=== PATIENT | male | born 1940 | race Caucasian/White ===

== ENCOUNTER 2019-01-23 16:15 | Inpatient (IN) | payer MEDICARE, OTHER ==
[~2019-01-23] VITALS: Ht 188 cm; Wt 98.7 kg
--- NOTE | 2019-01-23 16:59 | PHYS DOC ---
Past History Past Medical History: Other Additional Past Medical Histor: abd hernia Past Surgical History: Other Additional Past Surgical Histo: chest tube placed and removed Smoking: Quit Greater Than 1 Year Additional Smoking Information: Quit in 2017 Additional Alcohol Information: 5th every 2-3 weeks Drug Use: Marijuana Social History Narrative: no recent use Adult General Chief Complaint Chief Complaint: SHORTNESS OF BREATH [facility] HPI Patient is a 78-year-old male presents with worsening shortness of breath over the past month. Worse with exertion. No chest pain. Patient notes that his legs bilaterally have started swelling worse than usual in the past month. No worsening with recumbent position. No chest pain or palpitations. No cough. Patient is a former smoker having stopped approximately 2 years ago. Patient reports that he is eligible for care at the [place] but [facility]] Review of Systems Review of Systems Constitutional: Denies fever or chills [] Eyes: Denies change in visual acuity, redness, or eye pain [] HENT: Denies nasal congestion or sore throat [] Respiratory: See history of present illness[] Cardiovascular: No additional information not addressed in HPI [] GI: Denies abdominal pain, nausea, vomiting, bloody stools or diarrhea [] : Denies dysuria or hematuria [] Musculoskeletal: Denies back pain or joint pain [] Integument: Denies rash or skin lesions [] Neurologic: Denies headache, focal weakness or sensory changes [] Endocrine: Denies polyuria or polydipsia [] All other systems were reviewed and found to be within normal limits, except as documented in this note. Allergies Allergies Allergies Coded Allergies Type Severity Reaction Last Updated Verified No Known Drug Allergies 01/23/19 No Physical Exam Physical Exam Constitutional: Well developed, well nourished, mild discomfort, non-toxic appearance. [] HENT: Normocephalic, atraumatic, bilateral external ears normal, oropharynx moist, no oral exudates, nose normal. [] Eyes: PERRLA, EOMI, conjunctiva normal, no discharge. [] Neck: Normal range of motion, no tenderness, supple, no stridor. [] Cardiovascular:Heart rate is tachycardic with a regular rhythm, no murmur [] Lungs & Thorax: Bilateral breath sounds with inspiratory and expiratory wheezes throughout, decreased air flow[] Abdomen: Bowel sounds normal, soft, no tenderness, no masses, no pulsatile masses. [] Skin: Warm, dry, no erythema, no rash. [] Back: No tenderness, no CVA tenderness. [] Extremities: No tenderness, no cyanosis, no clubbing, ROM intact, 3+ pretibial edema and bilateral foot edema bilaterally. [] Neurologic: Alert and oriented X 3, normal motor function, normal sensory function, no focal deficits noted. [] Psychologic: Affect normal, judgement normal, mood normal. [] Current Patient Data Vital Signs Vital Signs Date Time Temp Pulse Resp B/P (MAP) Pulse Ox O2 Delivery O2 Flow Rate FiO2 01/23/19 16:22 98.3 112 22 93 Room Air EKG EKG EKG shows a sinus tachycardia at 109 bpm, left axis, QTC of 508 ms, no ST elevations. No old EKG available for comparison. Interpreted by me at 1658[] Radiology/Procedures Radiology/Procedures PROCEDURE: CHEST PA & LATERAL CHEST PA LATERAL CLINICAL INDICATION: Shortness of breath COMPARISON: None FINDINGS: Heart is normal in size. Lungs are slightly hyperinflated. No focal consolidation. Lungs are clear. No pneumothorax or pleural effusion. Visualized bony thorax within normal limits. IMPRESSION: COPD changes. Superimposed mild atypical/viral infection not ruled out.[] Course & Med Decision Making Course & Med Decision Making Pertinent Labs and Imaging studies reviewed. (See chart for details) ED course: Patient arrived, was placed in bed, and tolerated exam well. He was given a breathing treatment which improved aeration. IV access was established, laboratory samples were sent. He was transported to and from radiology with any complications. Additional breathing treatment was administered which improved his lung sounds even more. Consultation was made with the hospitalist service. They graciously accepted. Findings and plan were discussed with the patient who voiced understanding. All questions are were answered. He was admitted in improved condition. Medical decision making: Patient appears to have elements of both COPD and CHF. There is no evidence of overt failure on his chest x-ray but his bilateral lower extremities shows significant swelling in his BNP is greater than 3000. Patient's troponin is negative to day however his symptoms of been getting worse over the past month, this may been triggered by a cardiac event and the enzymes have tapered over time. He Is being admitted for further evaluation and treatment. [] Dragon Disclaimer Dragon Disclaimer This electronic medical record was generated, in whole or in part, using a voice recognition dictation system. Departure Departure: Impression: Primary Impression: COPD (chronic obstructive pulmonary disease) Additional Impression: Congestive heart failure Disposition: 09 ADMITTED INPATIENT Admitting Physician: Leida Acosta Condition: IMPROVED Referrals: PCP,NO (PCP) Problem Qualifiers Primary Impression: COPD (chronic obstructive pulmonary disease) COPD type: unspecified COPD Qualified Codes: J44.9 - Chronic obstructive pulmonary disease, unspecified Additional Impression: Congestive heart failure Heart failure type: unspecified Heart failure chronicity: unspecified Qualified Codes: I50.9 - Heart failure, unspecified SELENE BRITO DO Jan 23, 2019 16:59
[2019-01-23] MEDS ORDERED: ASPIRIN 81 MG TAB.CHEW PO ONE (17:00)
[2019-01-23] MEDS ORDERED: IPRATRPIUM/ALBUTEROL 0.5/2.5MG 3 ML NEBU. NEB ONE (17:00)
[2019-01-23 17:08] LABS: BASO % 0 % (0-3); EOS # 0.1 x10^3/uL (0.0-0.7); EOS % 1 % (0-3); HEMATOCRIT 48.2 % (39.0-53.0); HEMOGLOBIN 15.8 g/dL (13.0-17.5); LYMPH # 1.4 x10^3/uL (1.0-4.8); LYMPH % 15 % (24-48); MEAN CORPUSCULAR HEMOGLOBIN 29 pg (25-35); MEAN CORPUSCULAR HGB CONC 33 g/dL (31-37); MEAN CORPUSCULAR VOLUME 87 fL (79-100); MONO # 0.7 x10^3/uL (0.0-1.1); MONO % 8 % (0-9); NEUT # 7.1 x10^3uL (1.8-7.7); NEUT % 76 % (31-73); PLATELET COUNT 184 x10^3/uL (140-400); RED BLOOD COUNT 5.54 x10^6/uL (4.30-5.70); RED CELL DISTRIBUTION WIDTH 15.2 % (11.5-14.5); WHITE BLOOD COUNT 9.4 x10^3/uL (4.0-11.0)
[2019-01-23 17:24] LABS: ALBUMIN 2.6 g/dL (3.4-5.0); ALBUMIN/GLOBULIN RATIO 0.6 (1.0-1.7); CALCIUM 8.9 mg/dL (8.5-10.1); CREATININE 1.2 mg/dL (0.7-1.3); GFR 58.6; MAGNESIUM 2.1 mg/dL (1.8-2.4); POTASSIUM 3.7 mmol/L (3.5-5.1); TOTAL BILIRUBIN 1.5 mg/dL (0.2-1.0); TOTAL PROTEIN 6.8 g/dL (6.4-8.2)
[2019-01-23] MEDS ORDERED: ALBUTEROL SULFATE 2.5 MG/3 ML NEBU. NEB ONE (17:30)
--- NOTE | 2019-01-23 17:30 | RAD ---
CHEST PA LATERAL CLINICAL INDICATION: Shortness of breath COMPARISON: None FINDINGS: Heart is normal in size. Lungs are slightly hyperinflated. No focal consolidation. Lungs are clear. No pneumothorax or pleural effusion. Visualized bony thorax within normal limits. IMPRESSION: COPD changes. Superimposed mild atypical/viral infection not ruled out. Electronically signed by: Phoenix Hickman DO (01/23/2019 5:27 PM) [facility]
[2019-01-23] MEDS ORDERED: FUROSEMIDE 40 MG/4 ML VIAL IVP ONE (18:00)
[2019-01-23] MEDS ORDERED: methylPREDNISolone SOD SUCC PF 125 MG/2 ML VIAL. IV ONE (18:00)
[2019-01-23] MEDS ORDERED: NITROGLYCERIN SUBLINGUAL 0.4 MG BOTTLE OF 25. SL PRN (18:15)
[2019-01-23] MEDS ORDERED: ONDANSETRON PF 4 MG/2 ML VIAL. IV PRN (18:15)
[2019-01-23] MEDS ORDERED: ACETAMINOPHEN 325 MG TABLET PO PRN (18:15)
[2019-01-23 19:25] VITALS: BP 125/78
[2019-01-23] MEDS: IPRATRPIUM/ALBUTEROL 0.5/2.5MG 3 ML NEBU. NEB SCH (20:00)
[2019-01-23 20:02] LABS: CLARITY,URINE CLEAR; COLOR,URINE YELLOW; GLUCOSE,URINE NEG (NEG)
[2019-01-23 20:03] LABS: BACTERIA,URINE FEW /HPF (0-FEW); BILIRUBIN,URINE NEG (NEG); HYALINE CASTS, URINE FEW /HPF; NITRITE,URINE POS (NEG); RBC,URINE 0 /HPF (0-2); UROBILINOGEN,URINE 8 mg/dL (0.2 mg/dL); WAXY CASTS,URINE OCC /HPF; WBC,URINE OCC /HPF (0-4)
[2019-01-23] MEDS ORDERED: ASPI81TA50 PO (23:18)
[2019-01-23] MEDS ORDERED: Influenza vaccine per PROTOCOL. MC PRN (23:45)
[2019-01-24 06:29] VITALS: BP 121/89
--- NOTE | 2019-01-24 07:13 | EKG ---
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
[2019-01-24] MEDS: IPRATRPIUM/ALBUTEROL 0.5/2.5MG 3 ML NEBU. NEB SCH ×3 (08:00→16:00)
[2019-01-24] MEDS ORDERED: FLU VAX QS 2019-20 (36MOS+)/PF 0.5 ML SYRINGE. VAX IM ONE (09:00)
--- NOTE | 2019-01-24 10:14 | PDOC2 ---
CONSULT Date of Admission DATE: 01/24/19 TIME: 10:14 Reason for Consult: Congestive heart failure Referring Physician: Dr. Acosta Chief Complaint Shortness of breath Source: Chart review, Patient Problem List Problems Medical Problems: (1) Congestive heart failure Status: Acute (2) COPD (chronic obstructive pulmonary disease) Status: Acute History of Present Illness 78-year-old male without any previous cardiac history presented with one month history of progressive shortness of breath. He also complained of bilateral lower extremity edema but denied any chest pain, orthopnea/PND, palpitations or syncope. He has history of COPD and quit smoking 2 years ago. Past Medical History COPD Past Surgical History Chest tube placement Family History Negative for premature coronary artery disease Social History Patient quit smoking 2 years ago. He admitted to alcohol intake and marijuana use. Current Medications Current Medications Aspirin (Children'S Aspirin) 324 mg 1X ONCE PO Last administered on 01/23/19at 17:02; Start 01/23/19 at 17:00; Stop 01/23/19 at 17:01; Status DC Albuterol/ Ipratropium (Duoneb) 3 ml 1X ONCE NEB Last administered on 01/23/19at 17:05; Start 01/23/19 at 17:00; Stop 01/23/19 at 17:01; Status DC Albuterol Sulfate (Ventolin) 2.5 mg 1X ONCE NEB Last administered on 01/23/19at 17:47; Start 01/23/19 at 17:30; Stop 01/23/19 at 17:31; Status DC Methylprednisolone Sodium Succinate (SOLU-Medrol 125MG VIAL) 125 mg 1X ONCE IV Last administered on 01/23/19at 18:08; Start 01/23/19 at 18:00; Stop 01/23/19 at 18:01; Status DC Furosemide (Lasix) 40 mg 1X ONCE IVP Last administered on 01/23/19at 18:10; Start 01/23/19 at 18:00; Stop 01/23/19 at 18:01; Status DC Ondansetron HCl (Zofran) 4 mg PRN Q4HRS PRN IV NAUSEA/VOMITING; Start 01/23/19 at 18:15; Stop 01/24/19 at 18:14 Acetaminophen (Tylenol) 650 mg PRN Q4HRS PRN PO FEVER; Start 01/23/19 at 18:15; Stop 01/24/19 at 18:14 Nitroglycerin (Nitrostat) 0.4 mg PRN Q5MIN PRN SL CHEST PAIN; Start 01/23/19 at 18:15; Stop 01/24/19 at 18:14 Albuterol/ Ipratropium (Duoneb) 3 ml RTQID NEB Last administered on 01/24/19at 08:00; Start 01/23/19 at 20:00; Stop 01/24/19 at 19:59 Influenza Virus Vaccine Quadrival (Afluria Quad 2019-20 (3yr Up) Syringe) 0.5 ml ONCE ONCE VAX IM Last administered on 01/24/19at 09:49; Start 01/24/19 at 09:00; Stop 01/24/19 at 09:01; Status DC Info (FLU VACCINE per PROTOCOL) 1 ea PRN 1X PRN MC PER PROTOCOL; Start 01/23/19 at 23:45; Status Cancel Active Scripts Active Reported Aspir-Low (Aspirin) 81 Mg Tablet. 1 Tab PO DAILY Allergies: Coded Allergies: No Known Drug Allergies (Unverified , 01/23/19) PSYCHOLOGICAL ROS: No: Hallucinations Eyes: No: Loss of vision HEENT: No: Epistaxis Respiratory: YES: Shortness of breath; No: Hemoptysis Cardiovascular: No: Chest Pain, Palpitations Gastrointestinal: No: Vomiting Neurological: No: Seizures Skin: No: Rash General: Alert, mild distress HEENT: Atraumatic, PERRLA Lungs: Other (bilateral scattered crepitations) Heart: Regular rate Abdomen: Soft Extremities: Other (1+ pitting edema) Psych/Mental Status: Mental status NL VITALS Vital Signs Date Time Temp Pulse Resp B/P (MAP) Pulse Ox O2 Delivery O2 Flow Rate FiO2 01/24/19 07:00 Room Air 01/24/19 06:29 97.2 88 20 121/89 (100) 91 3.0 Labs Laboratory Tests Test 01/23/19 16:40 01/23/19 19:05 White Blood Count 9.4 x10^3/uL (4.0-11.0) Red Blood Count 5.54 x10^6/uL (4.30-5.70) Hemoglobin 15.8 g/dL (13.0-17.5) Hematocrit 48.2 % (39.0-53.0) Mean Corpuscular Volume 87 fL (79-100) Mean Corpuscular Hemoglobin 29 pg (25-35) Mean Corpuscular Hemoglobin Concent 33 g/dL (31-37) Red Cell Distribution Width 15.2 % (11.5-14.5) Platelet Count 184 x10^3/uL (140-400) Neutrophils (%) (Auto) 76 % (31-73) Lymphocytes (%) (Auto) 15 % (24-48) Monocytes (%) (Auto) 8 % (0-9) Eosinophils (%) (Auto) 1 % (0-3) Basophils (%) (Auto) 0 % (0-3) Neutrophils # (Auto) 7.1 x10^3uL (1.8-7.7) Lymphocytes # (Auto) 1.4 x10^3/uL (1.0-4.8) Monocytes # (Auto) 0.7 x10^3/uL (0.0-1.1) Eosinophils # (Auto) 0.1 x10^3/uL (0.0-0.7) Basophils # (Auto) 0.0 x10^3/uL (0.0-0.2) Prothrombin Time 13.3 SEC (9.4-11.4) Prothromb Time International Ratio 1.3 (0.9-1.1) Activated Partial Thromboplast Time 29 SEC (23-33) Sodium Level 137 mmol/L (136-145) Potassium Level 3.7 mmol/L (3.5-5.1) Chloride Level 98 mmol/L (98-107) Carbon Dioxide Level 30 mmol/L (21-32) Anion Gap 9 (6-14) Blood Urea Nitrogen 18 mg/dL (8-26) Creatinine 1.2 mg/dL (0.7-1.3) Estimated GFR (Cockcroft-Gault) 58.6 BUN/Creatinine Ratio 15 (6-20) Glucose Level 127 mg/dL (70-99) Calcium Level 8.9 mg/dL (8.5-10.1) Magnesium Level 2.1 mg/dL (1.8-2.4) Total Bilirubin 1.5 mg/dL (0.2-1.0) Aspartate Amino Transf (AST/SGOT) 23 U/L (15-37) Alanine Aminotransferase (ALT/SGPT) 24 U/L (16-63) Alkaline Phosphatase 85 U/L (46-116) Troponin I Quantitative < 0.017 ng/mL (0-0.055) BL-Qkh-C-Type Natriuretic Peptide 3118 pg/mL (0-449) Total Protein 6.8 g/dL (6.4-8.2) Albumin 2.6 g/dL (3.4-5.0) Albumin/Globulin Ratio 0.6 (1.0-1.7) Lipase 290 U/L (73-393) Urine Collection Type Unknown Urine Color Yellow Urine Clarity Clear Urine pH 6.0 Urine Specific [place] 1.015 Urine Protein Neg (NEG-TRACE) Urine Glucose (UA) Neg mg/dL (NEG) Urine Ketones (Stick) Neg mg/dL (NEG) Urine Blood Neg (NEG) Urine Nitrite Pos (NEG) Urine Bilirubin Neg (NEG) Urine Urobilinogen Dipstick 8 mg/dL (0.2 mg/dL) Urine Leukocyte Esterase Neg (NEG) Urine RBC 0 /HPF (0-2) Urine WBC Occ /HPF (0-4) Urine Squamous Epithelial Cells None /LPF Urine Bacteria Few /HPF (0-FEW) Urine Hyaline Casts Few /HPF Urine Waxy Casts Occ /HPF Urine Mucus Mod /LPF Assessment/Plan 1. Acute respiratory failure most probably secondary to acute COPD exacerbation and acute on chronic diastolic heart failure. Continue current treatment for acute COPD exacerbation per IM. 2. Acute on chronic diastolic heart failure, improved with Lasix given in ED. Check 2-D echo to assess LV systolic function. We will consider ischemic evaluation once respirated status improves, possibly as an outpatient. Thank you for your consultation. LUC BEGUM MD Jan 24, 2019 10:14
[2019-01-24 11:24] LABS: BASO % 0 % (0-3); EOS % 0 % (0-3); HEMATOCRIT 47.9 % (39.0-53.0); HEMOGLOBIN 15.6 g/dL (13.0-17.5); LYMPH # 0.7 x10^3/uL (1.0-4.8); LYMPH % 6 % (24-48); MEAN CORPUSCULAR HEMOGLOBIN 28 pg (25-35); MEAN CORPUSCULAR HGB CONC 33 g/dL (31-37); MEAN CORPUSCULAR VOLUME 87 fL (79-100); MONO # 0.7 x10^3/uL (0.0-1.1); MONO % 6 % (0-9); NEUT # 10.7 x10^3uL (1.8-7.7); NEUT % 88 % (31-73); PLATELET COUNT 194 x10^3/uL (140-400); RED BLOOD COUNT 5.52 x10^6/uL (4.30-5.70); RED CELL DISTRIBUTION WIDTH 15.1 % (11.5-14.5); WHITE BLOOD COUNT 12.2 x10^3/uL (4.0-11.0)
[2019-01-24 11:42] LABS: ALBUMIN 2.4 g/dL (3.4-5.0); ALBUMIN/GLOBULIN RATIO 0.6 (1.0-1.7); CALCIUM 8.6 mg/dL (8.5-10.1); CREATININE 1.1 mg/dL (0.7-1.3); GFR 64.7; POTASSIUM 3.4 mmol/L (3.5-5.1); TOTAL BILIRUBIN 0.9 mg/dL (0.2-1.0); TOTAL PROTEIN 6.4 g/dL (6.4-8.2)
[2019-01-24 11:50] VITALS: BP 123/79
[2019-01-24 13:57] VITALS: BP 124/81
[2019-01-24] MEDS ORDERED: FUROSEMIDE 20 MG/2 ML VIAL IVP ONE (14:45)
[2019-01-24] MEDS ORDERED: POTASSIUM CHLORIDE 20 MEQ TABLET.ER. PO ONE (14:45)
--- NOTE | 2019-01-24 15:47 | HP ---
ADMIT DATE: 01/23/2019 HISTORY OF PRESENT ILLNESS: The patient is a 78-year-old male patient who came to the Emergency Room complaining of shortness of breath, has been going on over the last month, worse with exertion. No chest pain. He also noted that his legs are swollen more than usual over the past month, no worsening with recumbent position. No chest pain or palpitation. No cough or phlegm. He is a former smoker, having stopped approximately 2 years ago. He stated the patient reports that he is eligible for care at the [facility], but was fired from the [facility]. He was evaluated in the Emergency Room extensively and apparently was diagnosed with COPD exacerbation as well as congestive heart failure and was admitted and was treated with IV Lasix, steroids as well as inhalers. PAST MEDICAL HISTORY: Significant for chronic obstructive pulmonary disease as well an episode of pneumothorax. PAST SURGICAL HISTORY: Significant for chest tube placement and removal. ALLERGIES: He has no known drug allergies. MEDICATIONS: He is on no medication except aspirin 81 mg once a day. FAMILY HISTORY: He has 3 brothers, 1 older and 2 younger, he does not talk to. He has one sister at the young age due to myocardial infarction. He is x 5. He has 2 daughters that he does not talk to. SOCIAL HISTORY: He quit smoking about 2 years ago. He continued to drink alcohol every now and then, the last time he drank any alcohol was about a month ago. Does not use any drugs. He lives alone and uses a cane to walk around. REVIEW OF SYSTEMS: As per history of present illness. PHYSICAL EXAMINATION: GENERAL: On arrival to the Emergency Room, there was no pallor, jaundice, cyanosis or thyromegaly. No jugular venous distention, mild bilateral lower limb edema. VITAL SIGNS: His heart rate was 112, blood pressure was 122/65, temperature was 98.3, respiratory rate was 22 and oxygen saturation was 93% on room air. HEAD, EYES, EARS, NOSE AND THROAT: Showed normocephalic, atraumatic. NECK: Supple. HEART: Showed normal first and second heart sounds. No gallop or murmur. CHEST: Shows central trachea, equally reduced expansion, reduced air entry, vesicular sounds with bilateral crepitation. I could not appreciate any rhonchi. ABDOMEN: Distended, soft, nontender. NEUROLOGIC: He is awake, alert, responding appropriately. All cranial nerves intact. EXTREMITIES: He moves extremities without difficulty, he ambulates with a cane. LABORATORY DATA: On admission showed a white cell count 9400, hemoglobin 15.8, hematocrit was 48, MCV 87 and platelet count of 184,000 with a manual differential showed 76% polymorphs, 15% lymphocytes, 8% monocytes. Serum sodium was 137, potassium 3.7, chloride 98, bicarbonate 30, anion gap of 9, BUN 18, creatinine 1.2, estimated GFR was 58 mL per minute, his glucose 127, calcium was 8.9, magnesium was 2.1. Total bilirubin 1.5. AST, ALT, alkaline phosphatase were normal. His beta natriuretic peptide was 31,118, total protein was 6.8, albumin was 2.6. Lipase was 190. His prothrombin time and INR as well as aPTT were all within normal range. Urinalysis was essentially unremarkable and his chest x-ray showed that the patient's heart size is normal. Lungs are slightly hyperinflated. No focal consolidation. Lungs are clear. No pneumothorax or pleural effusion, visualized bony thorax was within normal limits. ASSESSMENT AND PLAN: The patient was admitted with COPD exacerbation and was treated with albuterol and Atrovent inhalers together with methylprednisolone as well as furosemide. We will continue with the steroids as well as inhalers. We will monitor his lab response and consult physical and occupational therapy. CLIVE CHUNG MD DR: BRIANNA/destiny JOB#: [id number] / [id number]
--- NOTE | 2019-01-24 16:38 | EKG ---
[address] [address] Test Date: 2019-01-24 Test Time: 14:07:30 Pat Name: RUBI BRITT Department: Room: 124 A Gender: M Hiv Nurse: : 1940 Requested By: CLIVE CHUNG Order Number: [id number] Reading MD: Bret Wells MD Measurements Intervals [place] Rate: 107 P: 216 AR: 154 QRS: 8 QRSD: 86 T: 60 QT: 380 QTc: 514 Interpretive Statements PROBABLE SINUS TACHYCARDIA CONSIDER ANTEROSEPTAL INFARCT BASELINE ARTIFACT Electronically Signed On 01-31-2019 11:34:32 CDT by Bret Wells MD
--- NOTE | 2019-01-24 16:39 | EKG ---
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
[2019-01-24 20:39] VITALS: BP 93/68
[2019-01-24] MEDS: POTASSIUM CHLORIDE 20 MEQ TABLET.ER. PO SCH (21:16)
[2019-01-24] MEDS: methylPREDNISolone SOD SUCC PF 40 MG/ML VIAL. IV SCH (22:00)
[2019-01-25] VITALS (8 sets, daily range): BP systolic 93–128; BP diastolic 66–91
--- NOTE | 2019-01-25 03:38 | PN ---
DATE: SUBJECTIVE: The patient is resting, slightly propped up in bed, was complaining of chest pain as well as fluttering of his chest. He continued to have also shortness of breath. He did have one set of cardiac enzymes that was negative and we did an EKG, which showed that he was in sinus rhythm and we will do 2 more sets of cardiac enzymes. PHYSICAL EXAMINATION: GENERAL: When I saw him this afternoon, he looked well and was clearly in no apparent respiratory distress. No pallor, jaundice, cyanosis or thyromegaly. No jugular venous distention. No lower limb edema. VITAL SIGNS: His heart rate was 101, blood pressure was 123/79, temperature was 98.3, respiratory rate 20 and oxygen saturation was 95% on 3 liters of oxygen. HEAD, EYES, EARS, NOSE AND THROAT: Normocephalic, atraumatic. NECK: Supple. HEART: Showed normal first and second heart sounds. No gallop or murmur. CHEST: Showed central trachea, equal bilateral expansion, air entry, vesicular sounds with crepitation mostly posteriorly on both sides. I could not appreciate any rhonchi. ABDOMEN: Distended, soft, nontender. NEUROLOGIC: He is awake, alert, responding appropriately. All cranial nerves are intact. He moves extremities without difficulty. He ambulates with a walker. His intake and output were incompletely recorded. LABORATORY DATA: As of this morning showed a white cell count of 12,200, hemoglobin 15.6, hematocrit 47, MCV 87 and platelet count of 194,000. His chemistry showed a serum sodium 139, potassium 3.4, chloride 99, bicarbonate 31, anion gap of 9, BUN 19, creatinine 1.1, estimated GFR was 65 mL per minute. His glucose was 168, calcium was 8.6. Total bilirubin, AST, ALT, alkaline phosphatase were normal. Beta natriuretic peptide was 2552. Total protein was 6.4, albumin was 2.4. ASSESSMENT: Chronic obstructive pulmonary disease exacerbation and questionable congestive heart failure. PLAN: To continue with IV Lasix. Continue with steroids and bronchodilators. We will consult Physical and Occupational Therapy and will do 2 more sets of cardiac enzymes and decide on further management accordingly. CLIVE CHUNG MD DR: BRIANNA/destiny JOB#: [id number] / [id number]
[2019-01-25] MEDS: methylPREDNISolone SOD SUCC PF 40 MG/ML VIAL. IV SCH ×3 (06:00→14:08)
[2019-01-25 06:28] LABS: HEMATOCRIT 45.5 % (39.0-53.0); RED BLOOD COUNT 5.24 x10^6/uL (4.30-5.70); RED CELL DISTRIBUTION WIDTH 15.2 % (11.5-14.5); WHITE BLOOD COUNT 10.3 x10^3/uL (4.0-11.0)
[2019-01-25 06:46] LABS: ALBUMIN 2.3 g/dL (3.4-5.0); ALBUMIN/GLOBULIN RATIO 0.6 (1.0-1.7); CALCIUM 8.5 mg/dL (8.5-10.1); CREATININE 1.1 mg/dL (0.7-1.3); GFR 64.7; POTASSIUM 3.8 mmol/L (3.5-5.1); TOTAL BILIRUBIN 0.6 mg/dL (0.2-1.0); TOTAL PROTEIN 5.9 g/dL (6.4-8.2)
[2019-01-25] MEDS: POTASSIUM CHLORIDE 20 MEQ TABLET.ER. PO SCH ×2 (08:38→14:00)
[2019-01-25] MEDS ORDERED: FUROSEMIDE 40 MG TABLET PO SCH (09:00)
[2019-01-25] MEDS ORDERED: FUROSEMIDE 40 MG/4 ML VIAL IVP SCH (09:00)
--- NOTE | 2019-01-25 09:13 | PDOC ---
OMAR GARCES JANELLE 01/25/19 0912: CARDIO Progress Notes Date & Time Date of Service DATE: 01/25/19 TIME: 09:08 Time of Evaluation 09:08 Subjective Notes slightly less SOA at rest, but RAE persists Vitals Vitals Vital Signs Date Time Temp Pulse Resp B/P (MAP) Pulse Ox O2 Delivery O2 Flow Rate FiO2 01/25/19 06:13 97.9 119 18 124/83 (97) 90 Nasal Cannula 3.0 Weight Weight [ ] Input and Output I.O. Intake and Output 01/25/19 07:00 Intake Total 840 ml Balance 840 ml Intake Oral 840 ml # Voids 5 # Bowel Movements 2 Laboratory Labs Laboratory Tests Test 01/23/19 16:40 01/23/19 19:05 01/24/19 11:13 01/24/19 14:00 White Blood Count 9.4 x10^3/uL (4.0-11.0) 12.2 x10^3/uL (4.0-11.0) Red Blood Count 5.54 x10^6/uL (4.30-5.70) 5.52 x10^6/uL (4.30-5.70) Hemoglobin 15.8 g/dL (13.0-17.5) 15.6 g/dL (13.0-17.5) Hematocrit 48.2 % (39.0-53.0) 47.9 % (39.0-53.0) Mean Corpuscular Volume 87 fL (79-100) 87 fL (79-100) Mean Corpuscular Hemoglobin 29 pg (25-35) 28 pg (25-35) Mean Corpuscular Hemoglobin Concent 33 g/dL (31-37) 33 g/dL (31-37) Red Cell Distribution Width 15.2 % (11.5-14.5) 15.1 % (11.5-14.5) Platelet Count 184 x10^3/uL (140-400) 194 x10^3/uL (140-400) Neutrophils (%) (Auto) 76 % (31-73) 88 % (31-73) Lymphocytes (%) (Auto) 15 % (24-48) 6 % (24-48) Monocytes (%) (Auto) 8 % (0-9) 6 % (0-9) Eosinophils (%) (Auto) 1 % (0-3) 0 % (0-3) Basophils (%) (Auto) 0 % (0-3) 0 % (0-3) Neutrophils # (Auto) 7.1 x10^3uL (1.8-7.7) 10.7 x10^3uL (1.8-7.7) Lymphocytes # (Auto) 1.4 x10^3/uL (1.0-4.8) 0.7 x10^3/uL (1.0-4.8) Monocytes # (Auto) 0.7 x10^3/uL (0.0-1.1) 0.7 x10^3/uL (0.0-1.1) Eosinophils # (Auto) 0.1 x10^3/uL (0.0-0.7) 0.0 x10^3/uL (0.0-0.7) Basophils # (Auto) 0.0 x10^3/uL (0.0-0.2) 0.0 x10^3/uL (0.0-0.2) Prothrombin Time 13.3 SEC (9.4-11.4) Prothromb Time International Ratio 1.3 (0.9-1.1) Activated Partial Thromboplast Time 29 SEC (23-33) Sodium Level 137 mmol/L (136-145) 139 mmol/L (136-145) Potassium Level 3.7 mmol/L (3.5-5.1) 3.4 mmol/L (3.5-5.1) Chloride Level 98 mmol/L (98-107) 99 mmol/L (98-107) Carbon Dioxide Level 30 mmol/L (21-32) 31 mmol/L (21-32) Anion Gap 9 (6-14) 9 (6-14) Blood Urea Nitrogen 18 mg/dL (8-26) 19 mg/dL (8-26) Creatinine 1.2 mg/dL (0.7-1.3) 1.1 mg/dL (0.7-1.3) Estimated GFR (Cockcroft-Gault) 58.6 64.7 BUN/Creatinine Ratio 15 (6-20) 17 (6-20) Glucose Level 127 mg/dL (70-99) 168 mg/dL (70-99) Calcium Level 8.9 mg/dL (8.5-10.1) 8.6 mg/dL (8.5-10.1) Magnesium Level 2.1 mg/dL (1.8-2.4) Total Bilirubin 1.5 mg/dL (0.2-1.0) 0.9 mg/dL (0.2-1.0) Aspartate Amino Transf (AST/SGOT) 23 U/L (15-37) 25 U/L (15-37) Alanine Aminotransferase (ALT/SGPT) 24 U/L (16-63) 23 U/L (16-63) Alkaline Phosphatase 85 U/L (46-116) 80 U/L (46-116) Troponin I Quantitative < 0.017 ng/mL (0-0.055) < 0.017 ng/mL (0-0.055) IV-Cpa-Q-Type Natriuretic Peptide 3118 pg/mL (0-449) 2552 pg/mL (0-449) Total Protein 6.8 g/dL (6.4-8.2) 6.4 g/dL (6.4-8.2) Albumin 2.6 g/dL (3.4-5.0) 2.4 g/dL (3.4-5.0) Albumin/Globulin Ratio 0.6 (1.0-1.7) 0.6 (1.0-1.7) Lipase 290 U/L (73-393) Urine Collection Type Unknown Urine Color Yellow Urine Clarity Clear Urine pH 6.0 Urine Specific Leonore 1.015 Urine Protein Neg (NEG-TRACE) Urine Glucose (UA) Neg mg/dL (NEG) Urine Ketones (Stick) Neg mg/dL (NEG) Urine Blood Neg (NEG) Urine Nitrite Pos (NEG) Urine Bilirubin Neg (NEG) Urine Urobilinogen Dipstick 8 mg/dL (0.2 mg/dL) Urine Leukocyte Esterase Neg (NEG) Urine RBC 0 /HPF (0-2) Urine WBC Occ /HPF (0-4) Urine Squamous Epithelial Cells None /LPF Urine Bacteria Few /HPF (0-FEW) Urine Hyaline Casts Few /HPF Urine Waxy Casts Occ /HPF Urine Mucus Mod /LPF Test 01/25/19 06:03 White Blood Count 10.3 x10^3/uL (4.0-11.0) Red Blood Count 5.24 x10^6/uL (4.30-5.70) Hemoglobin 15.0 g/dL (13.0-17.5) Hematocrit 45.5 % (39.0-53.0) Mean Corpuscular Volume 87 fL (79-100) Mean Corpuscular Hemoglobin 29 pg (25-35) Mean Corpuscular Hemoglobin Concent 33 g/dL (31-37) Red Cell Distribution Width 15.2 % (11.5-14.5) Platelet Count 175 x10^3/uL (140-400) Sodium Level 142 mmol/L (136-145) Potassium Level 3.8 mmol/L (3.5-5.1) Chloride Level 103 mmol/L (98-107) Carbon Dioxide Level 32 mmol/L (21-32) Anion Gap 7 (6-14) Blood Urea Nitrogen 22 mg/dL (8-26) Creatinine 1.1 mg/dL (0.7-1.3) Estimated GFR (Cockcroft-Gault) 64.7 BUN/Creatinine Ratio 20 (6-20) Glucose Level 125 mg/dL (70-99) Calcium Level 8.5 mg/dL (8.5-10.1) Total Bilirubin 0.6 mg/dL (0.2-1.0) Aspartate Amino Transf (AST/SGOT) 26 U/L (15-37) Alanine Aminotransferase (ALT/SGPT) 30 U/L (16-63) Alkaline Phosphatase 77 U/L (46-116) Total Protein 5.9 g/dL (6.4-8.2) Albumin 2.3 g/dL (3.4-5.0) Albumin/Globulin Ratio 0.6 (1.0-1.7) Physical Exams HEENT: Neck Supple W Full Motion Chest: Symmetric Lungs: Other (diminished throughout ) Heart: S1S2, RRR Abdomen: Soft N/T Extremities: Other (trace bilateral LE edema ) Neurology: alert, oriented, follow commands Assessment Assessment 1. Acute respiratory failure secondary to acute PE, AECOPD and a/c CHF 2. Significant acute PE 3. Mild acute on chronic diastolic CHF 4. Coronary artery calcification as noted on CTA 5. Hypertension; controlled 6. ? UTI 7. MADDIE 8. Sinus tach, reactive. Recommendations Echo to assess LV systolic function, RV dilation Heparin gtt No further aggressive diuresis warranted. Consider further ischemic workup on an outpatient. Supportive care ROOSEVELT COLEMAN MD 01/25/19 1623: CARDIO Progress Notes Plan Plan Pt. seen and examined. AGree with above [employer]OST[employer] note. Spoke to Dr. Becerril at [place] and Dr. Acosta. He has massive embolus with right heart strain and hypotension/tachycardia. He needs tPA. Will transfer to [place] with initiation of tPA in the ICU. Discussed with patient. No next of kin available to discuss. Thanks. OMAR GARCES APRN Jan 25, 2019 09:12 ROOSEVELT COLEMAN MD Jan 25, 2019 16:23
[2019-01-25] MEDS ORDERED: DIGOXIN IV 500 MCG/2 ML AMPUL. IV STA (11:02)
[2019-01-25] MEDS ORDERED: IV NORMAL SALINE 500ML 500 ML IV ONE (11:30)
[2019-01-25 11:33] LABS: BASO # 0.2 x10^3/uL (0.0-0.2); BASO % 1 % (0-3); EOS % 0 % (0-3); HEMATOCRIT 48.6 % (39.0-53.0); HEMOGLOBIN 15.6 g/dL (13.0-17.5); LYMPH # 2.1 x10^3/uL (1.0-4.8); LYMPH % 11 % (24-48); MEAN CORPUSCULAR HEMOGLOBIN 28 pg (25-35); MEAN CORPUSCULAR HGB CONC 32 g/dL (31-37); MEAN CORPUSCULAR VOLUME 88 fL (79-100); MONO # 0.8 x10^3/uL (0.0-1.1); MONO % 4 % (0-9); NEUT # 16.6 x10^3uL (1.8-7.7); NEUT % 84 % (31-73); PLATELET COUNT 235 x10^3/uL (140-400); RED BLOOD COUNT 5.51 x10^6/uL (4.30-5.70); RED CELL DISTRIBUTION WIDTH 15.4 % (11.5-14.5); WHITE BLOOD COUNT 19.8 x10^3/uL (4.0-11.0)
[2019-01-25 11:40] LABS: BGAS PH 7.49 (7.35-7.46)
[2019-01-25 11:48] LABS: ALBUMIN 2.4 g/dL (3.4-5.0); ALBUMIN/GLOBULIN RATIO 0.6 (1.0-1.7); CALCIUM 8.6 mg/dL (8.5-10.1); CREATININE 1.6 mg/dL (0.7-1.3); POTASSIUM 4.1 mmol/L (3.5-5.1); TOTAL BILIRUBIN 0.8 mg/dL (0.2-1.0); TOTAL PROTEIN 6.3 g/dL (6.4-8.2)
--- NOTE | 2019-01-25 12:05 | EKG ---
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
[2019-01-25 12:27] LABS: % BANDS 3 % (0-9); % BASOS 0 % (0-3); % EOS 0 % (0-5); % LYMPHS 9 % (24-48); % MONOS 5 % (0-10); % SEGS 83 % (35-66); PLT ESTIMATE ADEQUATE (ADEQUATE)
[2019-01-25] MEDS ORDERED: IOHEXOL 350 MG/ML 100 ML VIAL. IV ONE (13:00)
[2019-01-25] MEDS ORDERED: IV NORMAL SALINE 1,000ML 1,000 ML IV ONE (13:00)
[2019-01-25] MEDS ORDERED: IV NORMAL SALINE 1,000ML 1,000 ML IV SCH (13:00)
--- NOTE | 2019-01-25 13:52 | RAD ---
PQRS Compliance Statement: One or more of the following individualized dose reduction techniques were utilized for this examination: 1. Automated exposure control 2. Adjustment of the mA and/or kV according to patient size 3. Use of iterative reconstruction technique CT angiography chest with contrast 01/25/2019 1:08 PM INDICATION: Chest pain, tachycardia and marked hypoxia COMPARISON: None available TECHNIQUE: Axial CT images of the chest were obtained after the intravenous administration of nonionic contrast. Coronal and sagittal reformats are provided. Maximum intensity projection images of the thoracic vasculature are provided. FINDINGS: The thyroid gland is normal in appearance. There are no pathologically enlarged axillary, mediastinal or hilar lymph nodes. The heart size is within normal limits. No significant pericardial effusion. Thoracic aorta is normal in course and caliber. There is adequate opacification of the pulmonary arterial system. There is a saddle pulmonary embolus with occlusive thrombus identified involving the distal right main pulmonary artery with involvement of the right lobar, segmental and subsegmental pulmonary arteries of the right middle and lower lobes. Nonocclusive thrombus noted in the right upper lobe. Occlusive thrombus is noted in the left lower lobe segmental and subsegmental pulmonary arteries. There is deviation of the interventricular septum to the left compatible with right heart strain by CT. Coronary artery vascular calcifications are present. Moderate centrilobular pulmonary emphysema. No focal airspace consolidation or suspicious solid noncalcified pulmonary nodule. Restrained motion limits evaluation of the upper abdomen. Visualized portions of the upper abdomen are within normal limits. No suspicious osseous lesions are visualized. IMPRESSION: Massive pulmonary embolism with saddle embolus and associated right heart strain by CT. Moderate centrilobular pulmonary edema without focal airspace consolidation to suggest pulmonary infarct. FOR INTERNAL CODING PURPOSES Critical result: Findings discussed with Ivonne , the patient's nurse, at 01/25/2019 1:45 PM. RESULT CODE: (C) Electronically signed by: Vonda Woodson MD (01/25/2019 1:49 PM) [facility]
[2019-01-25] MEDS ORDERED: HEPARIN 25,000UTS/500ML PREMIX 500 ML IV PRN ×2 (14:00→14:15)
[2019-01-25] MEDS ORDERED: HEPARIN for IV BOLUS 10,000 UNIT/10 ML VIAL. IV ONE (14:15)
[2019-01-25] MEDS ORDERED: HEPARIN for IV BOLUS 10,000 UNIT/10 ML VIAL. IV PRN ×2 (14:15)
--- NOTE | 2019-01-25 16:04 | CARD ---
MR#: [id number] Date of Study: 01/25/2019 Ordering Physician: LUC BEGUM, Referring Physician: LUC BEGUM Tech: Carmen Ellison RDCS APPROVED REPORT EXAM: Two-dimensional and M-mode echocardiogram with Doppler and color Doppler. Other Information Quality : AverageHR: 125bpm Rhythm : TachycardiaTechnically limited study due to heart rate. INDICATION Congestive Heart Failure 2D DIMENSIONS RVDd4.4 (2.9-3.5cm)Left Atrium(2D)2.7 (1.6-4.0cm) IVSd1.0 (0.7-1.1cm)Aortic Root(2D)3.1 (2.0-3.7cm) LVDd3.3 (3.9-5.9cm)LVOT Diameter2.0 (1.8-2.4cm) PWd1.1 (0.7-1.1cm)LVDs2.3 (2.5-4.0cm) FS (%) 30.0 %SV26.5 ml LVEF(%)58.4 (>50%) M-Mode DIMENSIONS Left Atrium(MM)3.61 (2.5-4.0cm)Aortic Root3.36 (2.2-3.7cm) Aortic Valve AoV Peak Bari.121.0cm/Xavi Peak GR.5.9mmHg LVOT Peak Bari.62.7cm/sLVOT VTI 8.12cm VINAYAK (VMAX)1.58ro7URC (VTI)1.80cm2 Mitral Valve MV E Jhibttrx22.4cm/sMV DECEL TLRZ52jh MV A Zxohahmf96.6cm/sE/A Ratio1.8 Pulmonary Valve PV Peak Askhlsde566.5cm/sPV Peak Grad.4mmHg Tricuspid Valve TR P. Mqbtkifr846ta/sRAP FAMXSYUW03zuTb TR Peak Gr.75qzAfSUMK39jfJs LEFT VENTRICLE The left ventricle cavity is small. There is normal left ventricular wall thickness. The left ventric ular systolic function is normal and the ejection fraction is within normal range. The Ejection Fract ion is 55-60%. There is a flattened septum consistent with right ventricle volume and pressure overlo ad. Transmitral Doppler flow pattern is abnormal. RIGHT VENTRICLE The right ventricle is moderately to severely dilated. There is normal right ventricular wall thickne ss. RV Systolic function is moderately reduced. ATRIA The left atrium size is normal. The right atrium is moderately dilated. The interatrial septum is int act with no evidence for an atrial septal defect or patent foramen ovale as noted on 2-D or Doppler i maging. AORTIC VALVE The aortic valve is normal in structure and function. The aortic valve is trileaflet. Doppler and Col or Flow revealed no significant aortic regurgitation. There is no significant aortic valvular stenosi s. There is no aortic valvular vegetation. MITRAL VALVE The mitral valve is normal in structure and function. There is no evidence of mitral valve prolapse. There is no mitral valve stenosis. Doppler and Color Flow revealed no mitral valve regurgitation note d. TRICUSPID VALVE The tricuspid valve is normal in structure and function. Doppler and Color Flow revealed moderate tri cuspid regurgitation. There is severe pulmonary hypertension. The PA pressure was estimated at 86 mmH g. There is no tricuspid valve prolapse or vegetation. There is no tricuspid valve stenosis. PULMONIC VALVE The pulmonic valve is not well visualized. GREAT VESSELS The aortic root is normal in size. The ascending aorta is normal in size. The IVC was not visualized. PERICARDIAL EFFUSION There is no evidence of significant pericardial effusion. Critical Notification Critical Value: No <Conclusion> The left ventricular systolic function is normal and the ejection fraction is within normal range. Th e Ejection Fraction is 55-60%. There is a flattened septum consistent with right ventricle volume and pressure overload. The right ventricle is moderately to severely dilated. RV Systolic function is moderately reduced. Doppler and Color Flow revealed moderate tricuspid regurgitation. There is severe pulmonary hypertens ion. The PA pressure was estimated at 86 mmHg. Signed by : Bret Wells, Electronically Approved : 01/25/2019 16:04:19
--- NOTE | 2019-01-26 04:20 | PN ---
DATE: 01/25/2019 SUBJECTIVE: The patient is resting, slightly propped up in bed, clearly tachypneic. He is very clammy with marked diaphoresis. He did complain of chest pain after he went up to the bathroom, has 2 bowel movements and came back, his heart rate went up to 135 to 140, seems to be in SVT/atrial fibrillation. He had similar episode yesterday. We did 3 sets of cardiac enzymes that were negative. He is very hypoxic and requiring 100% nonrebreather mask to maintain his oxygen saturation more than 100%. ASSESSMENT: Chest pain could be ischemic versus pulmonary embolism. We will arrange for him to have a stat ABG, 12-lead EKG and stat troponin. We will arrange also to have a CT angio of the chest to rule out pulmonary embolism. We will decide the further management accordingly. CLIVE CHUNG MD DR: BRIANNA/destiny JOB#: [id number] / [id number]
== END 2019-01-25 18:38 | disposition short-term general hospital (02) | DRG 175 ==
LOC: ER 16:15 → 1 SOUTH 18:57 → ICU 01-25 12:41 → 1 SOUTH 01-25 12:45 → ICU 01-25 12:48
PROVIDERS: ADMIT Internal Medicine; ATTEND Internal Medicine
DX: I26.09 Other pulmonary embolism with acute cor pulmonale (principal); I50.33 Acute on chronic diastolic (congestive) heart failure; J96.01 Acute respiratory failure with hypoxia; R65.11 Systemic inflammatory response syndrome (SIRS) of non-infectious origin with acute organ dysfunction; E43 Unspecified severe protein-calorie malnutrition; J44.1 Chronic obstructive pulmonary disease with (acute) exacerbation; N17.9 Acute kidney failure, unspecified; N39.0 Urinary tract infection, site not specified; I11.0 Hypertensive heart disease with heart failure; Z87.891 Personal history of nicotine dependence; F12.90 Cannabis use, unspecified, uncomplicated; Z82.49 Family history of ischemic heart disease and other diseases of the circulatory system; I48.91 Unspecified atrial fibrillation; Z68.28 Body mass index [BMI] 28.0-28.9, adult
CPT/HCPCS: 36415; 71046; 71275; 80053; 80061; 81001; 82803; 83605; 83690; 83735; 83880; 84484; 85007; 85025; 85027; 85610; 85730; 87086; 87186; 90471; 90686; 93005; 93306; 94640; 96374; 96375; J1160; J1644; J1940; J2920; J2930; J7040; J7613; J7620; 99285-25; J7030

== ENCOUNTER 2019-02-02 15:33 | Inpatient (IN) | payer MEDICARE ==
[~2019-02-02] VITALS: Ht 188 cm; Wt 96.8 kg
[~2019-02-02 15:33] MED LIST: ASPI81TA50 PO
[2019-02-02 16:30] VITALS: BP 118/70
--- NOTE | 2019-02-02 19:20 | NUR ---
Swing Bed Admission Patient Handbook for Senior Living given to patient. Nursing Problem: PE, DVT, PT/Ot Eval/ Consult Cognitive/Behavioral: Pleasant, Compliant Pain: No pain currently Respiratory Status: SOB, 3 L O2 NC Skin: intact, with bruising Bowel/Bladder Continence: Continent of B & B ADL Functional Status: Independent Fall(s) prior to admission? Yes, 2 wks ago Admitted from? [facility]
--- NOTE | 2019-02-02 19:22 | NUR ---
Pt came from [facility] to Shelter Unit via wheelchair at 1830, . Pt is AA x 4 with a pleasant attitude. Educated pt on the expectations and nature of the unit. Pt's vital signs at 1835- 97.4, O2 sat on 3 L- 99%, Pulse Rate-103, 118/ 74, RR-22. Bed is lowest position, call light within reach, pt is wearing a brief. Instructed to call for assistance to bathroom. Pt able to state wants and desires. Pt has personal cane and hospital walker at bedside. Pt is to receive IV infusion of Venefir tonight at [address] Acosta's orders.
[2019-02-02] MEDS ORDERED: ACETAMINOPHEN 325 MG TABLET PO PRN (20:00)
[2019-02-02] MEDS ORDERED: HYDROcodone/APAP 5/325MG 1 TAB TABLET PO PRN (20:15)
[2019-02-02] MEDS ORDERED: IRON SUCROSE COMPLEX 500 MG in IV NORMAL SALINE 250ML 250 ML IV ONE (21:00)
--- NOTE | 2019-02-03 05:05 | NUR ---
Swing Bed Nursing Note Patient Handbook for Senior Living given to patient. Nursing Problem:Patient admitted from [facility] for PT/OT post PE,DVT Cognitive/Behavioral:Patient alert and oriented x 4, cooperative with cares and verbalized understanding of need to call for assistance. Pain:Patient has denied any c/o pain. Respiratory Status:HX of COPD,smoker. Lung sounds diminished on 3 L O2 per Nasal cannula. SOA with exertion, denies SOA with rest. Skin:Intact with large bruise to right lateral chest/rib area from prior fall. Bruising to Bilateral upper extremities from IV starts/lab draws per Patient. Bowel/Bladder Continence:Continent. Patient states he had a bowel movement 02/02/2019 at [facility] prior to admit here. ADL Functional Status:Assist X1 with walker and gait belt for transfers.
[2019-02-03 06:16] VITALS: BP 114/71
[2019-02-03 08:00] VITALS: BP 90/60
[2019-02-03] MEDS: FERROUS SULFATE 325 MG TABLET. PO SCH ×2 (08:29→16:58)
[2019-02-03] MEDS: predniSONE 10 MG TABLET PO SCH (08:30)
[2019-02-03] MEDS: PANTOPRAZOLE 40 MG TABLET. PO SCH (08:30)
--- NOTE | 2019-02-03 10:02 | NUR ---
Pt is alert and oriented x 4. Pt able to state wants and desires. Pt requires at least 1 assist to dress self, wipe after toileting, and ambulating. At this time, pt exhibits major weakness in Lower extremities accompanied with shortness of air. Pt stated he didn't think he could walk down to the dining room. Pt taken to breakfast this morning via wheelchair. Encouraged pt to breathe through nose to inhale oxygen. Pt states he is always a mouth breather. Pt ate little breakfast this morning. Pt states " I am scared to eat because everytime I eat it runs right through me." Encouraged pt to eat breakfast and educated pt on the importance of nourishment for strengthening and energy. Pt consumed 25% of meal. Pt worked with PT\\OT today and tolerated it ok. Pt is now resting in bed. Educated pt on the importance of staying out of bed and sitting in chair to regain strength and to become stronger. Pt stated "I'm tired and just want to lie down." Bed is in lowest position, call light within reach. non-skid socks and brief applied. Pt encouraged to call for any assistance.
[2019-02-03 10:50] LABS: ALBUMIN 2.4 g/dL (3.4-5.0); ALBUMIN/GLOBULIN RATIO 0.9 (1.0-1.7); CALCIUM 7.8 mg/dL (8.5-10.1); CREATININE 0.9 mg/dL (0.7-1.3); GFR 81.6; POTASSIUM 3.6 mmol/L (3.5-5.1); TOTAL BILIRUBIN 1.5 mg/dL (0.2-1.0); TOTAL PROTEIN 5.1 g/dL (6.4-8.2)
[2019-02-03 11:11] LABS: BASO # 0.1 x10^3/uL (0.0-0.2); BASO % 0 % (0-3); EOS % 0 % (0-3); HEMATOCRIT 24.3 % (39.0-53.0); HEMOGLOBIN 7.8 g/dL (13.0-17.5); LYMPH # 0.5 x10^3/uL (1.0-4.8); LYMPH % 4 % (24-48); MEAN CORPUSCULAR HEMOGLOBIN 30 pg (25-35); MEAN CORPUSCULAR HGB CONC 32 g/dL (31-37); MEAN CORPUSCULAR VOLUME 95 fL (79-100); MONO # 0.5 x10^3/uL (0.0-1.1); MONO % 3 % (0-9); NEUT # 12.6 x10^3uL (1.8-7.7); NEUT % 92 % (31-73); PLATELET COUNT 160 x10^3/uL (140-400); RED BLOOD COUNT 2.56 x10^6/uL (4.30-5.70); RED CELL DISTRIBUTION WIDTH 20.7 % (11.5-14.5); WHITE BLOOD COUNT 13.7 x10^3/uL (4.0-11.0)
[2019-02-03 12:22] LABS: ANISOCYTOSIS SLIGHT; HYPOCHROMIA SLIGHT; MICROCYTOSIS MOD; PLT ESTIMATE ADEQUATE (ADEQUATE); POLYCHROMASIA SLIGHT; TEAR DROP CELLS OCC
[2019-02-03] MEDS: CALCIUM CARBONATE 500 MG TAB.CHEW PO PRN (16:58)
[2019-02-03 18:00] VITALS: BP 97/59
[2019-02-04 06:47] VITALS: BP 112/65
[2019-02-04 08:00] VITALS: BP 115/72
[2019-02-04] MEDS: predniSONE 10 MG TABLET PO SCH (09:28)
[2019-02-04] MEDS: PANTOPRAZOLE 40 MG TABLET. PO SCH (09:29)
[2019-02-04] MEDS: FERROUS SULFATE 325 MG TABLET. PO SCH ×2 (09:29→17:00)
[2019-02-04 18:19] VITALS: BP 115/61
--- NOTE | 2019-02-05 05:39 | NUR ---
Pt is alert and oriented x4, pleasant and cooperative. He states he feels weak when trying to walk to the toilet but is successful with the walker with x1 assistance to help with moving clothing for urination, oxygen tubing and for balance. Pt eats snacks with encouragement and is looking forward to go home. He states he is "concerned about my apartment since I have no one to help me." He has a neighbor who has offered to bring him clothing but has not yet made it to the hospital. Will continue to monitor.
[2019-02-05 06:32] VITALS: BP 131/73
[2019-02-05] MEDS: PANTOPRAZOLE 40 MG TABLET. PO SCH (08:32)
[2019-02-05] MEDS: FERROUS SULFATE 325 MG TABLET. PO SCH ×2 (08:33→17:00)
[2019-02-05] MEDS: predniSONE 10 MG TABLET PO SCH (08:33)
[2019-02-05 09:18] VITALS: BP 98/55
[2019-02-05 10:33] LABS: HEMATOCRIT 23.1 % (39.0-53.0); HEMOGLOBIN 7.5 g/dL (13.0-17.5); RED BLOOD COUNT 2.38 x10^6/uL (4.30-5.70); RED CELL DISTRIBUTION WIDTH 21.7 % (11.5-14.5); WHITE BLOOD COUNT 10.3 x10^3/uL (4.0-11.0)
[2019-02-05 10:40] LABS: CALCIUM 7.6 mg/dL (8.5-10.1); CREATININE 0.8 mg/dL (0.7-1.3); GFR 93.5
[2019-02-05 10:42] LABS: POTASSIUM 2.8 mmol/L (3.5-5.1)
[2019-02-05] MEDS ORDERED: POTASSIUM CHLORIDE 20 MEQ TABLET.ER. PO ONE (11:15)
[2019-02-05] MEDS ORDERED: IV NORMAL SALINE 500ML 500 ML IV ONE (11:15)
[2019-02-05] MEDS: LORazepam 0.5 MG TABLET PO PRN (11:34)
[2019-02-05] MEDS: POTASSIUM CHLORIDE 20 MEQ TABLET.ER. PO SCH ×2 (11:35→20:29)
[2019-02-05] MEDS: IV NORMAL SALINE 1,000ML 1,000 ML IV SCH (11:36)
[2019-02-05 16:37] LABS: CALCIUM 7.4 mg/dL (8.5-10.1); CREATININE 0.8 mg/dL (0.7-1.3); GFR 93.5; POTASSIUM 4.1 mmol/L (3.5-5.1)
[2019-02-05 18:00] VITALS: BP 104/65
--- NOTE | 2019-02-05 21:45 | NUR ---
Pt is alert and oriented x 4. Pt able to state wants and desires. Pt requires at least 1 assist to dress self, wipe after toileting, and ambulating. At this time, pt exhibits major weakness in Lower extremities accompanied with shortness of air, pt is on 2 liters of 0xygen via nasal cannula. pt does have pitting edema around ankles. pt was calm and cooperative during med [employer] [place].
[2019-02-06] MEDS: IV NORMAL SALINE 1,000ML 1,000 ML IV SCH ×2 (00:31→14:30)
[2019-02-06 01:14] LABS: FECAL OB PT POSITIVE (NEG)
[2019-02-06 06:00] VITALS: BP 111/64
[2019-02-06 06:57] LABS: ALBUMIN 1.9 g/dL (3.4-5.0); ALBUMIN/GLOBULIN RATIO 0.7 (1.0-1.7); CALCIUM 7.6 mg/dL (8.5-10.1); CREATININE 0.7 mg/dL (0.7-1.3); GFR 109.1; POTASSIUM 3.7 mmol/L (3.5-5.1); TOTAL BILIRUBIN 0.7 mg/dL (0.2-1.0); TOTAL PROTEIN 4.5 g/dL (6.4-8.2)
[2019-02-06 06:58] LABS: HEMATOCRIT 21.8 % (39.0-53.0); HEMOGLOBIN 7.3 g/dL (13.0-17.5); RED BLOOD COUNT 2.28 x10^6/uL (4.30-5.70); RED CELL DISTRIBUTION WIDTH 22.2 % (11.5-14.5); WHITE BLOOD COUNT 9.3 x10^3/uL (4.0-11.0)
[2019-02-06] MEDS: POTASSIUM CHLORIDE 20 MEQ TABLET.ER. PO SCH ×3 (08:34→20:06)
[2019-02-06] MEDS: FERROUS SULFATE 325 MG TABLET. PO SCH ×2 (08:35→17:30)
[2019-02-06] MEDS: predniSONE 10 MG TABLET PO SCH (08:35)
[2019-02-06] MEDS: PANTOPRAZOLE 40 MG TABLET. PO SCH (08:35)
[2019-02-06] MEDS ORDERED: predniSONE 20 MG TABLET PO SCH (09:00)
[2019-02-06 11:19] VITALS: BP 105/59
--- NOTE | 2019-02-06 12:59 | NUR ---
Pt calm and cooperative. A&O x 4. Need assistance X1 from sitting to standing position. Stby assist with a walker to the bathroom. Able to use toilet and clean self. At breakfast, Patient stated: " I can't make it to the dinning room with the walker. I need my wheelchair." Refuses to go to dining room at lunch and eat meal in bed as friend next door got discharged.
--- NOTE | 2019-02-06 13:00 | NUR ---
Pt was siting down quietly in his room. Pt was eating his lunch , and after lunch pt did not want to participate in any recreation Activity [employer].
--- NOTE | 2019-02-06 16:57 | NUR ---
Swing Bed Nursing Note Patient Handbook for [facility] given to patient. Nursing Problem:Patient admitted from [facility] for PT/OT post PE,DVT Cognitive/Behavioral:Patient alert and oriented x 4, cooperative with cares and verbalized understanding of need to call for assistance. No behaviors noticed at this shift. Pain:Patient has denied any c/o pain. Respiratory Status:HX of COPD,smoker. Lung sounds diminished on 3 L O2 per Nasal cannula. SOA with exertion. No cough. Off oxygen when using the bathroom. Skin:Intact with large bruise to right lateral chest/rib area from prior fall. Bruising to Bilateral upper extremities from IV starts/lab draws per Patient. Bowel/Bladder Continence:Continent. Patient had two episodes of BM today. Dark color, formed. Voided 03 times today. clear yellow urine. ADL Functional Status:Assist X1 with walker and gait belt for transfers. Able to wipe self after bathroom use. Able to pull pant down and up by himself. Need help standing up from toilet. Prefer to use wheelchair to go to dinning room instead of walker in order to prevent SOA. Had activities with PT and OT today. Prefer stay in bed for lunch and eat dinner sitting on bedside. Able to swing self in bed and put blanket when sitting on bedside.
[2019-02-06 18:19] VITALS: BP 111/70
[2019-02-06 19:49] LABS: CALCIUM 7.6 mg/dL (8.5-10.1); CREATININE 0.7 mg/dL (0.7-1.3); GFR 109.1; POTASSIUM 4.2 mmol/L (3.5-5.1)
--- NOTE | 2019-02-07 05:07 | NUR ---
Swing Bed Nursing Note Patient Handbook for [facility] given to patient. Nursing Problem:Patient admitted from [facility] for PT/OT, strengthening post PE,DVT Cognitive/Behavioral: Patient alert and oriented x 4, cooperative with cares and verbalized understanding of need to call for assistance. No behaviors noticed at this shift. Pain: Patient has denied any c/o pain. Respiratory Status: History of COPD. Lung sounds clear, diminished, 2L NC. SOA with exertion. Non productive cough. Skin:Intact with large bruise to right lateral chest/rib area from prior fall. Bruising to bilateral upper extremities from multiple IV starts/lab draws. Bowel/Bladder Continence: Continent of bowel and bladder. Uses toilet with standby assist. ADL Functional Status:Assist X1 with walker and gait belt for transfers. Able to wipe self after bathroom use. Able to pull pant down and up by himself. Need help standing up from toilet. Prefers to use wheelchair to go to dinning room instead of walker in order to prevent SOA. Able to swing self in bed and put blanket when sitting on bedside.
[2019-02-07 05:16] VITALS: BP 126/67
[2019-02-07 06:12] LABS: HEMATOCRIT 22.8 % (39.0-53.0); HEMOGLOBIN 7.5 g/dL (13.0-17.5); RED BLOOD COUNT 2.35 x10^6/uL (4.30-5.70); RED CELL DISTRIBUTION WIDTH 23.1 % (11.5-14.5); WHITE BLOOD COUNT 9.2 x10^3/uL (4.0-11.0)
[2019-02-07] MEDS: FERROUS SULFATE 325 MG TABLET. PO SCH ×2 (08:00→17:54)
[2019-02-07] MEDS: predniSONE 10 MG TABLET PO SCH (08:00)
[2019-02-07] MEDS: POTASSIUM CHLORIDE 20 MEQ TABLET.ER. PO SCH ×3 (08:00→20:26)
[2019-02-07] MEDS: PANTOPRAZOLE 40 MG TABLET. PO SCH (08:00)
[2019-02-07] MEDS: LORazepam 0.5 MG TABLET PO PRN (09:53)
--- NOTE | 2019-02-07 11:59 | NUR ---
Swing Bed Nursing Note Patient Handbook for [facility] given to patient. Nursing Problem:Patient admitted from [facility] for PT/OT for gait strengthening post massive PE, DVT, and acute GI bleed Cognitive/Behavioral: Patient alert and oriented x 4, cooperative with cares and verbalized understanding of need to call for assistance. Patient will use call light prior to getting up due to high fall risk. Patient appears anxious this morning, per nurses aide, patient is like this in the morning and states that he gets panic attacks very easily. PRN ativan given this am with effectiveness. Pain: Patient has denied any c/o pain while at rest but when working with therapy and moving from bed to chair patient complains of pain to abdomen and right side. Bruising appears to right side, will notify physician. Respiratory Status: History of COPD. Lung sounds clear, diminished, 2L NC. SOA with exertion. Non productive cough. Skin:Intact with large purple and black bruise to right lateral chest/rib area from prior fall. Purple Bruising to bilateral upper extremities from multiple IV starts/lab draws. 2+ pitting edema noted to lower extremties, encouraged to elevate legs throughout the day due to increased swelling noted. Patient has prior DVTs to lower extremities, Venancio hose non administered. Bowel/Bladder Continence: Continent of bowel and bladder. Uses toilet with standby assist. ADL Functional Status:Assist X1 with walker and gait belt for transfers. Able to wipe self after bathroom use. Able to pull pant down and up by himself. Need help standing up from toilet. Prefers to use wheelchair to go to dinning room instead of walker in order to prevent SOA. Able to swing self in bed and put blanket when sitting on bedside.
[2019-02-07 14:33] VITALS: BP 90/57
--- NOTE | 2019-02-07 16:26 | NUR ---
Dr Acosta assessed patients bruising to right abdomen and side, no further orders just continue to monitor.
[2019-02-07 20:30] VITALS: BP 110/68
[2019-02-08 05:35] VITALS: BP 123/53
--- NOTE | 2019-02-08 06:05 | NUR ---
Swing Bed Nursing Note Nursing Problem: Patient admitted from [facility] for PT/OT, strengthening post PE, DVT. Cognitive/Behavioral: Patient A/OX4, pleasant and cooperative. Able to make needs known. No behaviors noted this shift. Pain: Pt denies any c/o pain. Respiratory Status: History of COPD. Lung sounds clear, diminished, wearing O2 at 2L via NC. SOA with exertion. Non-productive cough. Skin: Intact with large bruise to right lateral chest/rib area from prior fall. Bruising to bilateral upper extremities from multiple IV starts/lab draws. Bowel/Bladder Continence: Continent of bowel and bladder. Uses toilet with standby assist. Awaiting stool sample for r/o C. Diff, but pt has only had 1 formed stool this shift. ADL Functional Status: Assist X1 with walker and gait belt for transfers. Able to wipe self after bathroom use. Able to pull pants down and up by himself. Need help standing up from toilet. Prefers to use wheelchair to go to dining room instead of walker in order to prevent SOA. Able to swing self in bed and put blanket when sitting on bedside. Feeds self and takes pills whole.
[2019-02-08] MEDS: LORazepam 0.5 MG TABLET PO PRN (08:23)
[2019-02-08] MEDS: PANTOPRAZOLE 40 MG TABLET. PO SCH (08:23)
[2019-02-08] MEDS: FERROUS SULFATE 325 MG TABLET. PO SCH ×2 (08:23→16:55)
[2019-02-08] MEDS: predniSONE 10 MG TABLET PO SCH (08:23)
[2019-02-08] MEDS: POTASSIUM CHLORIDE 20 MEQ TABLET.ER. PO SCH ×3 (08:24→20:14)
--- NOTE | 2019-02-08 13:00 | NUR ---
TIME:1300 PARTICIPATION: N ATTEND GROUP: NONE SESSION TITLE: THE UNGAME TYPE OF SESSION: COGNITIVE SESSIONS GOALS: MEMORY PT RESPONSE: Pt did not want to participate in any recreation therapy. Pt stated that he was tired from physical therapy and just wanted to relax. Pt engaged and conversed with staff for a few minutes.
--- NOTE | 2019-02-08 13:30 | NUR ---
SWING BED DOCUMENTATION Patient Handbook for Long Term given to patient. Nursing Problem:Patient admitted from [facility] for PT/OT for gait strengthening post massive PE, DVT, and acute GI bleed Cognitive/Behavioral: A&O X4 this am. Pt gets anxious at times and was feeling anxious this am upon assessment. prn Ativan given this am. Pain: pt has prn pain medications when needed, pt has denied pain thus far. Respiratory Status:Lung sounds diminished, no wheezing noted. 2L NC. SOA with exertion. Skin:Intact with large purple and black bruise to right lateral chest/rib area from prior fall. Purple Bruising to bilateral upper extremities from multiple IV starts/lab draws. pt has been evaluated in prior shift by dr pelayo, no orders obtained. pt has edema in lower extremities, pt elevates legs while in bed. Bowel/Bladder Continence: Continent of bowel and bladder. Uses toilet with standby assist. ADL Functional Status:pt is x1 assist. pt had shower today and was able to wash the front of his hair and body but needs help washing back and back of head due to limited range of motion and finger deformity. pt is now wearing underpants and not a brief. pt needs min assist with getting up and out of chair with occasional boost and guidance encouragement. pt does get SOB when up and moving around. nguyen finley.
[2019-02-08 17:49] VITALS: BP 108/69
--- NOTE | 2019-02-09 00:09 | NUR ---
Swing Bed Nursing Note Nursing Problem: Patient admitted from [facility] for PT/OT, strengthening post PE, DVT. Cognitive/Behavioral: Patient A/OX4, calm and cooperative. Laying in bed watching the world series at time of assessment. In good spirits. No behaviors noted. Pain: Pt denies any c/o pain. Respiratory Status: History of COPD. Lung sounds clear, diminished, wearing O2 at 2L via NC. SOA with exertion. No cough noted this evening. Skin: Intact with large bruise to right lateral chest/rib area from prior fall. Bruising to bilateral upper extremities from multiple IV starts/lab draws. Coccyx is intact. Bowel/Bladder Continence: Continent of bowel and bladder. Uses toilet with standby assist. Pt has had 2 large formed stools today, 02/08. ADL Functional Status: Assist X1 with walker and gait belt for transfers. Able to wipe self after bathroom use. Able to pull pants down and up by himself. Need help standing up from toilet. Prefers to use wheelchair to go to dining room instead of walker in order to prevent SOA. Able to swing self in bed and put blanket when sitting on bedside. Feeds self and takes pills whole.
[2019-02-09 05:30] VITALS: BP 102/63
[2019-02-09] MEDS: CALCIUM CARBONATE 500 MG TAB.CHEW PO PRN (07:39)
[2019-02-09] MEDS: PANTOPRAZOLE 40 MG TABLET. PO SCH (07:39)
[2019-02-09] MEDS: FERROUS SULFATE 325 MG TABLET. PO SCH ×2 (07:40→16:54)
[2019-02-09] MEDS: predniSONE 10 MG TABLET PO SCH (07:40)
[2019-02-09] MEDS: POTASSIUM CHLORIDE 20 MEQ TABLET.ER. PO SCH ×3 (07:40→20:00)
[2019-02-09] MEDS ORDERED: predniSONE 20 MG TABLET PO SCH (09:00)
--- NOTE | 2019-02-09 11:24 | NUR ---
SWING BED NOTE Patient Handbook for [facility] given to patient. Nursing Problem:Patient admitted from [facility] for PT/OT for gait strengthening post massive PE, DVT, and acute GI bleed Cognitive/Behavioral: A&O X4 this am. Pt gets anxious at times and was feeling anxious this am upon assessment. States the other patients "make me nervous." Pain: pt has prn pain medications when needed, pt has denied pain thus far. Respiratory Status:Lung sounds diminished, no wheezing noted. 2L NC. SOA with exertion. PT suggests trial without O2. Will discuss with MD. Skin:Intact with large purple and black bruise to right lateral chest/rib area from prior fall. Purple Bruising to bilateral upper extremities from multiple IV starts/lab draws. pt has edema in lower extremities, pt elevates legs while in bed. Bowel/Bladder Continence: Continent of bowel and bladder. Uses toilet with standby assist. ADL Functional Status:pt is x1 assist. pt had shower yesterday and was able to wash the front of his hair and body but needs help washing back and back of head due to limited range of motion and finger deformity. pt is now wearing underpants and not a brief. pt needs min assist with getting up and out of chair with occasional boost and guidance encouragement. pt does get SOB when up and moving around. Pt did not want to go to dining area with other pts as they "make me nervous"--pt agreeable to walk to secondary dining area for meals.
[2019-02-09 17:54] VITALS: BP 108/56
--- NOTE | 2019-02-10 03:24 | NUR ---
Swing Bed Nursing Note Nursing Problem: Patient admitted from [facility] for PT/OT, strengthening post massive PE, DVT, and GI bleed. Cognitive/Behavioral: Patient A/OX4. Resting with eyes closed, pleasant and talkative when approached for assessment. Pain: Pt denies any c/o pain. Respiratory Status: History of COPD. Lung sounds clear, diminished, wearing O2 at 2L via NC. SOA with exertion. Skin: Intact with large bruise to right lateral chest/rib area from prior fall. Bruising to bilateral upper extremities from multiple IV starts/lab draws. Coccyx is intact. Bowel/Bladder Continence: Continent of bowel and bladder. Uses toilet with standby assist. Pt reports LBM today, but still feels bloated. Abdomen mildly distended. Pt declined any PRN medication at this time. ADL Functional Status: Assist X1 with walker and gait belt for transfers. Able to wipe self after bathroom use. Able to pull pants down and up by himself. Need help standing up from toilet. Prefers to use wheelchair to go to dining room instead of walker in order to prevent SOA. Able to swing self in bed and put blanket when sitting on bedside. Feeds self and takes pills whole.
[2019-02-10 05:29] VITALS: BP 96/58
[2019-02-10 06:15] LABS: HEMATOCRIT 24.9 % (39.0-53.0); HEMOGLOBIN 8.1 g/dL (13.0-17.5); RED BLOOD COUNT 2.53 x10^6/uL (4.30-5.70); RED CELL DISTRIBUTION WIDTH 22.7 % (11.5-14.5); WHITE BLOOD COUNT 6.4 x10^3/uL (4.0-11.0)
[2019-02-10 06:20] LABS: CREATININE 0.6 mg/dL (0.7-1.3); GFR 130.3; POTASSIUM 4.1 mmol/L (3.5-5.1)
[2019-02-10] MEDS: predniSONE 10 MG TABLET PO SCH (08:42)
[2019-02-10] MEDS: POTASSIUM CHLORIDE 20 MEQ TABLET.ER. PO SCH ×3 (08:42→20:43)
[2019-02-10] MEDS: PANTOPRAZOLE 40 MG TABLET. PO SCH (08:42)
[2019-02-10] MEDS: FERROUS SULFATE 325 MG TABLET. PO SCH ×2 (08:43→16:59)
[2019-02-10] MEDS ORDERED: POLYETHYLENE GLYCOL 3350 17 GM PACKET. PO PRN (08:45)
[2019-02-10 18:42] VITALS: BP 104/70
--- NOTE | 2019-02-10 18:44 | NUR ---
Swing Bed Nursing Note Nursing Problem: weakness and instability sec to deconditioning after recent hosp for PEs and DVTs with subsequent GI bleed Cognitive/Behavioral: alert and oriented x4, pleasant and cooperative, did refuse to go to dining room for meals today because he doesn't know the other patients Pain: minor aches and pains, refused tylenol Respiratory Status: was on oxygen 1 L at beginning of shift. I amb to BR this am w/o oxygen and he was 94% on return to chair on RA; I left the oxygen off at that point. he cont to sat in the mid 90s today, SOA with extensive amb but not around the room, no cough Skin: fragile, thin, bruising right rib cage and left forearm Bowel/Bladder Continence: continent of bowel and bladder, was distended and c/o bloating this am. given prune juice with miralax this am and has had multiple dark green BMs with relief of pressure in the abd ADL Functional Status: independent getting up out of chair and off toilet, supervised for amb with walker in room, indep eating, needed assist in shower to wash and dress lower body
--- NOTE | 2019-02-11 00:35 | NUR ---
Swing Bed Nursing Note Nursing Problem: Patient admitted from [facility] for PT/OT, strengthening post massive PE, DVT, and GI bleed. Cognitive/Behavioral: Patient A/OX4. Resting with eyes closed, pleasant and talkative when approached for assessment. Pain: Pt denies any c/o pain. Respiratory Status: History of COPD. Lung sounds clear, diminished, wearing O2 at 2L via NC. SOA with exertion. Skin: Intact with large bruise to right lateral chest/rib area from prior fall. Bruising to bilateral upper extremities from multiple IV starts/lab draws. Coccyx is intact. Bowel/Bladder Continence: Continent of bowel and bladder. Uses toilet with standby assist. Pt reports LBM 10/25, but still feels bloated. Abdomen mildly distended. Pt declined any PRN medication at this time. ADL Functional Status: Assist X1 with walker and gait belt for transfers. Able to wipe self after bathroom use. Able to pull pants down and up by himself. Need help standing up from toilet. Prefers to use wheelchair to go to dining room instead of walker in order to prevent SOA. Able to swing self in bed and put blanket when sitting on bedside. Feeds self and takes pills whole.
[2019-02-11 06:07] VITALS: BP 108/67
[2019-02-11] MEDS: POTASSIUM CHLORIDE 20 MEQ TABLET.ER. PO SCH ×3 (09:00→20:22)
[2019-02-11] MEDS: predniSONE 10 MG TABLET PO SCH (09:00)
[2019-02-11] MEDS: FERROUS SULFATE 325 MG TABLET. PO SCH ×2 (09:01→17:00)
[2019-02-11] MEDS: PANTOPRAZOLE 40 MG TABLET. PO SCH (09:01)
[2019-02-11 17:58] VITALS: BP 105/67
--- NOTE | 2019-02-12 02:27 | NUR ---
Swing Bed Nursing Note Nursing Problem: Patient admitted from [facility] for PT/OT, strengthening post massive PE, DVT, and GI bleed. Cognitive/Behavioral: Patient A/OX4. Resting with eyes closed, pleasant and talkative when approached for assessment. Pain: Pt denies any c/o pain. Respiratory Status: History of COPD. Lung sounds clear, diminished, On room air saturation 94-95%. SOA with exertion at times. Skin: Intact with large bruise to right lateral chest/rib area from prior fall. Bruising to bilateral upper extremities from multiple IV starts/lab draws. Coccyx is intact. Bowel/Bladder Continence: Continent of bowel and bladder. Uses toilet with standby assist. Pt reports LBM 10, but still feels bloated. Abdomen mildly distended. Pt declined any PRN medication at this time. ADL Functional Status: Assist X1 with walker and gait belt for transfers. Able to wipe self after bathroom use. Able to pull pants down and up by himself. Need help standing up from toilet. Prefers to use wheelchair to go to dining room instead of walker in order to prevent SOA. Able to swing self in bed and put blanket when sitting on bedside. Feeds self and takes pills whole.
[2019-02-12 06:00] VITALS: BP 119/73
[2019-02-12] MEDS: PANTOPRAZOLE 40 MG TABLET. PO SCH (06:20)
[2019-02-12] MEDS: predniSONE 10 MG TABLET PO SCH (08:39)
[2019-02-12] MEDS: POTASSIUM CHLORIDE 20 MEQ TABLET.ER. PO SCH ×3 (08:39→21:00)
[2019-02-12] MEDS: FERROUS SULFATE 325 MG TABLET. PO SCH ×2 (08:39→16:26)
[2019-02-12] MEDS ORDERED: predniSONE 10 MG TABLET PO SCH (09:00)
[2019-02-12 18:38] VITALS: BP 111/66
[2019-02-13 05:25] VITALS: BP 122/72
[2019-02-13] MEDS: PANTOPRAZOLE 40 MG TABLET. PO SCH (10:47)
[2019-02-13] MEDS: FERROUS SULFATE 325 MG TABLET. PO SCH ×2 (10:47→16:12)
[2019-02-13] MEDS: predniSONE 10 MG TABLET PO SCH (10:47)
[2019-02-13] MEDS: POTASSIUM CHLORIDE 20 MEQ TABLET.ER. PO SCH ×3 (10:47→20:10)
--- NOTE | 2019-02-13 13:00 | NUR ---
TIME:1300 PARTICIPATION: N ATTEND GROUP: NONE SESSION TITLE: THE UNGAME TYPE OF SESSION: COGNITIVE SESSIONS GOALS: MEMORY PT RESPONSE: Pt did not want to participate in any recreation therapy. Pt stated that he was tired from physical therapy and just wanted to relax.
--- NOTE | 2019-02-13 13:33 | NUR ---
Nursing note: Swing Bed Nursing Note Nursing Problem: weakness and instability sec to deconditioning after recent hospitalization for PEs and DVTs with subsequent GI bleed Cognitive/Behavioral: alert and oriented x4, pleasant and cooperative, pt refuses to go to dining room today because he doesn't know other patients Pain: minor aches and pains, refused tylenol Respiratory Status: Pt saturations are WNL on room air. Reports SOA with extensive amb but not around the room, no cough Skin: fragile, thin, bruising right rib cage and left forearm Bowel/Bladder Continence: Pt continent of bowel and bladder this shift. Stand-by assist with walker to bathroom. Pt has had soft BM x3 this shift. ADL Functional Status: independent getting up out of chair and off toilet, supervised for amb with walker in room, indep eating, needed assist in shower to wash and dress lower body
[2019-02-13 17:53] VITALS: BP 101/69
--- NOTE | 2019-02-14 02:51 | NUR ---
Nursing Problem: weakness and instability sec to deconditioning after recent hospitalization for PEs and DVTs with subsequent GI bleed Cognitive/Behavioral: alert and oriented x4, pleasant and cooperative, with medications and assessment. Pain: none reported this shift Respiratory Status: Pt saturations are WNL on room air. Reports SOA with extensive amb but not around the room, no cough Skin: fragile, thin, bruising right rib cage and left forearm Bowel/Bladder Continence: Pt continent of bowel and bladder this shift. Stand-by assist with walker to bathroom. ADL Functional Status: independent getting up out of chair and off toilet, supervised for amb with walker in room, indep eating, needed assist in shower to wash and dress lower body
[2019-02-14 06:08] VITALS: BP 111/62
[2019-02-14] MEDS: POTASSIUM CHLORIDE 20 MEQ TABLET.ER. PO SCH ×3 (07:42→19:33)
[2019-02-14] MEDS: FERROUS SULFATE 325 MG TABLET. PO SCH ×2 (07:42→15:28)
[2019-02-14] MEDS: predniSONE 10 MG TABLET PO SCH (07:42)
[2019-02-14] MEDS: PANTOPRAZOLE 40 MG TABLET. PO SCH (07:42)
--- NOTE | 2019-02-14 14:43 | NUR ---
Nursing note: Swing Bed Nursing Note Nursing Problem: weakness and instability sec to deconditioning after recent hospitalization for PEs and DVTs with subsequent GI bleed Cognitive/Behavioral: alert and oriented x4, pleasant and cooperative, pt refuses to go to dining room today because he doesn't know other patients Pain: minor aches and pains, refused tylenol Respiratory Status: Pt saturations are WNL on room air. Reports SOA with extensive amb but not around the room, no cough Skin: fragile, thin, bruising right rib cage and left forearm Bowel/Bladder Continence: Pt continent of bowel and bladder this shift. Stand-by assist with walker to bathroom. Pt has had soft BM x2 this shift. ADL Functional Status: independent getting up out of chair and off toilet, supervised for amb with walker in room, indep eating, needed assist in shower to wash and dress lower body Patient is being discharged home tomorrow with home health. [facility] is transporting patient from [facility] to home.
--- NOTE | 2019-02-15 04:00 | NUR ---
Nursing note: Swing Bed Nursing Note Nursing Problem: weakness and instability sec to deconditioning after recent hospitalization for PEs and DVTs with subsequent GI bleed Cognitive/Behavioral: alert and oriented x4, pleasant and cooperative, pt refused to get into pajamas for bed. Stated he didn't want to mess with it and preferred to stay in his jeans. Pain:Denied any pain. Respiratory Status: Pt saturations are WNL on room air. Noted SOA with activity. Skin: fragile, thin, bruising right rib cage and left forearm Bowel/Bladder Continence: Pt continent of bowel and bladder this shift. Stand-by assist with walker to bathroom. Pt has had soft BM x2 this shift. ADL Functional Status: independent getting up out of bed and off toilet, supervised for ambulation with walker in room. Patient is to be discharged today with home health. [facility] is transporting patient from [facility] to home.
[2019-02-15 06:22] VITALS: BP 110/60
[2019-02-15 07:04] LABS: BASO # 0.1 x10^3/uL (0.0-0.2); BASO % 1 % (0-3); EOS % 0 % (0-3); HEMATOCRIT 30.6 % (39.0-53.0); HEMOGLOBIN 9.6 g/dL (13.0-17.5); LYMPH % 9 % (24-48); MEAN CORPUSCULAR HEMOGLOBIN 31 pg (25-35); MEAN CORPUSCULAR HGB CONC 32 g/dL (31-37); MEAN CORPUSCULAR VOLUME 98 fL (79-100); MONO # 0.5 x10^3/uL (0.0-1.1); MONO % 4 % (0-9); NEUT # 9.8 x10^3uL (1.8-7.7); NEUT % 86 % (31-73); PLATELET COUNT 151 x10^3/uL (140-400); RED BLOOD COUNT 3.12 x10^6/uL (4.30-5.70); RED CELL DISTRIBUTION WIDTH 20.3 % (11.5-14.5); WHITE BLOOD COUNT 11.4 x10^3/uL (4.0-11.0)
[2019-02-15 07:18] LABS: CALCIUM 7.7 mg/dL (8.5-10.1); CREATININE 1.1 mg/dL (0.7-1.3); GFR 64.7; POTASSIUM 3.9 mmol/L (3.5-5.1)
[2019-02-15] MEDS: PANTOPRAZOLE 40 MG TABLET. PO SCH (07:33)
[2019-02-15] MEDS: FERROUS SULFATE 325 MG TABLET. PO SCH (07:33)
[2019-02-15] MEDS: POTASSIUM CHLORIDE 20 MEQ TABLET.ER. PO SCH (07:33)
[2019-02-15 07:49] VITALS: BP 115/67
--- NOTE | 2019-02-15 07:50 | NUR ---
Pt has temperature of 102.7 at 6:20. Tylenol given and labs ordered. Reassessment at 7:30 temp is 102.8 orally, HR 131. MD called, labs and CXR ordered. Pt resting in bed at this time, in NAD.
--- NOTE | 2019-02-15 09:34 | RAD ---
AP chest. HISTORY: Change in vitals, decreased O2 saturation AP views were taken of the chest. Heart is within normal limits in size. There are no confluent infiltrates. There is no pleural effusion. There has been no change from the recent study. Patient has not taken as deep of inspiration. IMPRESSION: 1. No new infiltrates. Electronically signed by: Judson Ruvalcaba MD (02/15/2019 9:31 AM) [id number]
[2019-02-15 10:12] VITALS: BP 109/67
--- NOTE | 2019-02-15 10:14 | NUR ---
paged with CXR and lactic results. Pt to transfer to [address] [place] [address] per MD orders. Temperature 98.2, pt in NAD, resting in bed. ABX infusing.
--- NOTE | 2019-02-15 10:15 | NUR ---
Nursing Note: Nursing Problem: weakness and instability sec to deconditioning after recent hospitalization for PEs and DVTs with subsequent GI bleed Cognitive/Behavioral: alert and oriented x4, pleasant and cooperative, pt refuses to go to dining room today because he doesn't know other patients Pain: minor aches and pains Respiratory Status: Pt saturations are WNL on room air. Pt SOB this AM. 2 L NC applied, pt saturations 95-100% and SOB resolved. Skin: fragile, thin, bruising right rib cage and left forearm Bowel/Bladder Continence: Pt continent of bowel and bladder this shift. Stand-by assist with walker to bathroom. Pt has had soft BM x3 this shift. ADL Functional Status: independent getting up out of chair and off toilet, supervised for amb with walker in room, indep eating, needed assist in shower to wash and dress lower body Pt feeling weak and wobbly per overnight houseperson. Temp elevated. Labs and CXR order. paged and decision to admit to [address] [place] [address].
[2019-02-15 11:15] LABS: BACTERIA,URINE MANY /HPF (0-FEW); BILIRUBIN,URINE NEG (NEG); CLARITY,URINE HAZY; COLOR,URINE AMBER; GLUCOSE,URINE NEG (NEG); NITRITE,URINE NEG (NEG); UROBILINOGEN,URINE 4 mg/dL (0.2 mg/dL)
[2019-02-15 11:16] LABS: AMORPHOUS SEDIMENT,UR PRESENT /HPF; SQUAMOUS EPITHELIAL CELL,UR MOD /LPF
--- NOTE | 2019-02-15 12:06 | NUR ---
Discharge: Pt discharged and admitted to [address] [place] [address] via wheelchair per MD orders. Pt VSS, NAD at this time. All belongings accounted for.
[2019-02-15] MEDS ORDERED: CALC200T3 PO (14:47)
[2019-02-15] MEDS ORDERED: POLY17PO5 PO (14:47)
[2019-02-15] MEDS ORDERED: LACT1CAP2 PO (14:47)
[2019-02-15] MEDS ORDERED: FERR325T14 PO (14:47)
[2019-02-15] MEDS ORDERED: POTA20TA4 PO (14:47)
[2019-02-15] MEDS ORDERED: ACET325T9 PO (14:47)
[2019-02-15] MEDS ORDERED: LORA0.5T96 PO (14:47)
[2019-02-15] MEDS ORDERED: HYDR-2155 PO (14:47)
[2019-02-15] MEDS ORDERED: PANT40TA5 PO (14:47)
[2019-02-15] MEDS ORDERED: LACTOBACILLUS RHAMNOSUS GG 1 CAPSULE. PO SCH (21:00)
== END 2019-02-15 12:02 | disposition other institution (70) | DRG 176 ==
LOC: LND 18:21
PROVIDERS: ADMIT Internal Medicine; ATTEND Internal Medicine
DX: I26.99 Other pulmonary embolism without acute cor pulmonale (principal); Z66 Do not resuscitate; Z79.899 Other long term (current) drug therapy
CPT/HCPCS: 36415; 71045; 80048; 80053; 81001; 82274; 83605; 83880; 85025; 85027; 87040; J0696; J1756; J7040; J7050; J7512; 97110; 97116; 97530; 97535; J7030

== ENCOUNTER 2019-02-15 12:08 | Inpatient (IN) | payer MEDICARE ==
[~2019-02-15] VITALS: Ht 188 cm; Wt 96.8 kg
[2019-02-15 13:11] VITALS: BP 110/69
[2019-02-15] MEDS ORDERED: LACT1CAP2 PO (14:47)
[2019-02-15] MEDS ORDERED: CALC200T3 PO (14:47)
[2019-02-15] MEDS ORDERED: ACET325T9 PO (14:47)
[2019-02-15] MEDS ORDERED: PANT40TA5 PO (14:47)
[2019-02-15] MEDS ORDERED: LORA0.5T96 PO (14:47)
[2019-02-15] MEDS ORDERED: POTA20TA4 PO (14:47)
[2019-02-15] MEDS ORDERED: FERR325T14 PO (14:47)
[2019-02-15] MEDS ORDERED: POLY17PO5 PO (14:47)
[2019-02-15] MEDS ORDERED: HYDR-2155 PO (14:47)
[2019-02-15 15:45] VITALS: BP 119/64
--- NOTE | 2019-02-15 16:30 | NUR ---
Pt admitted to [facility] from [facility] for sepsis. Pt alert and oriented. Pt complains of shivering. Pt on 2L of oxygen. Discussed unit policy and procedures. Belongings checked.
[2019-02-15] MEDS ORDERED: POLYETHYLENE GLYCOL 3350 17 GM PACKET. PO PRN (16:45)
[2019-02-15] MEDS ORDERED: LORazepam 0.5 MG TABLET PO PRN (16:45)
[2019-02-15] MEDS: IV NORMAL SALINE 1,000ML 1,000 ML IV SCH ×2 (17:00→23:13)
[2019-02-15] MEDS ORDERED: IV NORMAL SALINE 500ML 500 ML IV ONE (17:00)
[2019-02-15] MEDS: ACETAMINOPHEN 325 MG TABLET PO PRN (17:31)
--- NOTE | 2019-02-15 17:47 | HP ---
ADMIT DATE: 02/15/2019 HISTORY OF PRESENT ILLNESS: The patient is a 78-year-old male patient, who was originally admitted to this hospital with shortness of breath and was diagnosed with saddle embolus and was eventually transferred to [facility]. He was treated with TPA and heparin drip. Unfortunately, he has lost huge amount of blood with GI bleed and eventually had an inferior vena cava placed successfully and his heparin drip was discontinued and given his deconditioning and debility he was admitted to swing bed for further rehabilitation and in fact he did very well and there were plans for him to be discharged this morning and unfortunately he started feeling generally unwell, had shivering, fever. He spiked a temperature up to 102.7, so we did extensive investigation including a CBC, which showed a white cell count has risen to 11,400. His chemistry was generally unremarkable. Urinalysis showed there were about 5-10 wbc's and many bacteria and therefore, the patient was transferred to acute care in [address] [place] [address] with a diagnosis of sepsis as his initial lactic acid was high at 2.4 that has subsequently come down to 1.8. We did actually send blood and urine for culture and sensitivity, has had a chest x-ray done, which basically showed that the heart is within normal limits in size. There are no confluent infiltrates. There is no pleural effusion. There has been no change from the recent study. The inspiratory effort was shallow. PAST MEDICAL HISTORY: Significant for chronic obstructive pulmonary disease, apparently has an episode of spontaneous pneumothorax. On his last admission, he has also had saddle embolus for which he received TPA and heparin drip and acute blood loss anemia with hemoglobin and hematocrit have dropped from 15 and 45 down to 7 and 21. PAST SURGICAL HISTORY: Significant for chest tube placement and removal and most recently had an inferior vena cava filter placed. ALLERGIES: He has no known drug allergies. MEDICATIONS: He is currently on following medications: He is on ferrous sulfate 325 mg twice a day, aspirin 81 mg once a day, hydrocodone/APAP 5/325 one tablet every 6 hours, Tylenol 650 mg 4 times a day, lorazepam 0.5 mg every 8 hours, potassium chloride 20 mEq once a day, calcium carbonate for Tums 3 times a day, lactobacillus acidophilus 1 capsule twice a day. He is on polyethylene glycol 17 grams daily. He is also on Protonix 40 mg once a day. FAMILY HISTORY: He has 3 brothers, 1 older and 2 younger. He does not talk to them. He has one sister at the younger age due to myocardial infarction. He is 5 times. He has 2 daughters that he does not talk to also. SOCIAL HISTORY: Quit smoking about 3 years ago. He continued to drink alcohol every now and then, the last time he drank any alcohol was about a month prior to his most recent admission. He does not use any drugs. He lives alone and uses a cane to walk around. REVIEW OF SYSTEMS: As per history of present illness when I saw him PHYSICAL EXAMINATION: GENERAL: On arrival to [address] [place] [address], he was obviously pale, very flushed. There is no jaundice, cyanosis or thyromegaly. No jugular venous distention. No limb edema. VITAL SIGNS: His heart rate was 119, blood pressure was 110/69, temperature was 98.5, respiratory rate was 20, and oxygen saturation was 98% on 2 liters of oxygen. HEAD, EYES, EARS, NOSE AND THROAT: Showed normocephalic, atraumatic. NECK: Supple. HEART: Showed normal first and second heart sounds. No gallop or murmur. CHEST: Clear to auscultation. No crepitation or rhonchi. ABDOMEN: Distended, soft, nontender. No guarding or rigidity. No organomegaly. All hernial orifice intact. Bowel sounds normal. NEUROLOGIC: He was awake, alert, responding appropriately. All cranial nerves intact. EXTREMITIES: He moves extremities without difficulty. LABORATORY DATA: His lab work prior to transfer to [address] [place] [address] showed a white cell count of 11,400, hemoglobin 9.6, hematocrit 30.6, MCV 98 and platelet count of 151,000 with normal manual differential. His chemistry showed a serum sodium 134, potassium 3.9, chloride 101, bicarbonate 22, anion gap of 11, BUN 18, creatinine 1.1, estimated GFR was 64 mL per minute, his glucose 134, lactic acid was 1.8 and initially was 2.4, calcium was 7.7. ASSESSMENT AND PLAN: Sepsis without obvious source of infection. Chest x-ray was unremarkable. Urinalysis showed only 5-10 wbc's. I will check obviously for his swabs for influenza. Meanwhile, we have done blood cultures and urine culture. I started him empirically on IV Rocephin; however, if he is positive for influenza, we will start him on Tamiflu. CLIVE CHUNG MD DR: BRIANNA/destiny JOB#: [id number] / [id number]
[2019-02-15 19:07] LABS: INFLUENZA A PATIENT NEGATIVE (NEGATIVE); INFLUENZA B PATIENT NEGATIVE (NEGATIVE)
[2019-02-15 20:02] VITALS: BP 92/54
[2019-02-15] MEDS: CALCIUM CARBONATE 500 MG TAB.CHEW PO SCH (20:40)
[2019-02-15] MEDS: LACTOBACILLUS RHAMNOSUS GG 1 CAPSULE. PO SCH (20:40)
[2019-02-15] MEDS: FERROUS SULFATE 325 MG TABLET. PO SCH (20:41)
[2019-02-15 22:38] VITALS: BP 125/73
[2019-02-16 05:07] VITALS: BP 106/67
--- NOTE | 2019-02-16 05:16 | NUR ---
Shift Note: Pt is a/ox4. Pt does have HR in 140s with activity, rebounds to low 100s at rest. Pt feels very weak and is letharthic. Pt requiring supplemental oxygen at rest and with ambulation. IV is infusing as ordered. Pt had several bowel movements throughout the night, somewhat incont but does ask to go to the restroom.
[2019-02-16 06:38] LABS: HEMATOCRIT 25.4 % (39.0-53.0); HEMOGLOBIN 8.3 g/dL (13.0-17.5); RED BLOOD COUNT 2.63 x10^6/uL (4.30-5.70); RED CELL DISTRIBUTION WIDTH 19.9 % (11.5-14.5); WHITE BLOOD COUNT 6.6 x10^3/uL (4.0-11.0)
[2019-02-16 06:57] LABS: ALBUMIN 1.7 g/dL (3.4-5.0); ALBUMIN/GLOBULIN RATIO 0.5 (1.0-1.7); CALCIUM 7.3 mg/dL (8.5-10.1); CREATININE 0.8 mg/dL (0.7-1.3); GFR 93.5; POTASSIUM 3.5 mmol/L (3.5-5.1); TOTAL BILIRUBIN 0.8 mg/dL (0.2-1.0); TOTAL PROTEIN 5.1 g/dL (6.4-8.2)
[2019-02-16] MEDS: LACTOBACILLUS RHAMNOSUS GG 1 CAPSULE. PO SCH ×2 (08:00→20:11)
[2019-02-16] MEDS: ASPIRIN ENTERIC COATED 81 MG TABLET.DR. PO SCH (08:00)
[2019-02-16] MEDS: CALCIUM CARBONATE 500 MG TAB.CHEW PO SCH ×3 (08:00→20:11)
[2019-02-16] MEDS: FERROUS SULFATE 325 MG TABLET. PO SCH ×2 (08:01→20:11)
[2019-02-16] MEDS: POTASSIUM CHLORIDE 20 MEQ TABLET.ER. PO SCH (08:01)
[2019-02-16] MEDS: PANTOPRAZOLE 40 MG TABLET. PO SCH (08:22)
[2019-02-16] MEDS: IV NORMAL SALINE 1,000ML 1,000 ML IV SCH (08:54)
[2019-02-16 10:27] VITALS: BP 111/71
[2019-02-16] MEDS ORDERED: IOHEXOL 350 MG/ML 100 ML VIAL. IV ONE (15:45)
[2019-02-16 15:54] VITALS: BP 124/73
[2019-02-16] MEDS ORDERED: CONTRAST GIVEN MC PRN (16:00)
--- NOTE | 2019-02-16 17:13 | RAD ---
Chest CTA History: Worsening shortness of breath Technique: After bolus of intravenous contrast, CT imaging was performed of the chest. Multiplanar reconstruction images to include MIP reconstruction images are submitted. Exposure: One or more of the following individualized dose reduction techniques were utilized for this examination: 1. Automated exposure control 2. Adjustment of the mA and/or kV according to patient size 3. Use of iterative reconstruction technique. Comparison: 01/25/2019 Findings: Previously seen pulmonary emboli have overall decreased, small residual foci bilaterally most notable near the left main pulmonary artery bifurcation. However there are now more occlusive emboli in the left upper lobe branches posteriorly although the anterior branches are better opacified with contrast on the exam. There has been development of severe left upper lobe infiltrate, also associated with foci of some internal bronchiectasis more medially and superiorly. There is no pneumothorax or significant pleural fluid. Small quantity of pericardial fluid is greater. There is again emphysema. There is mild atelectasis near the left lung base of the left lower lobe. Thoracic aortic caliber is stable, no intraluminal flap. This should be noted the entirety of the right lung base was not included on this exam. There is some coronary calcification. Impression: 1. Previously seen pulmonary emboli have overall decreased. However there has been variable change of the left upper lobe now with more occlusive emboli posteriorly although improved contrast opacification of more anterior branches. There is now prominent left upper lobe infiltrate, could be a component of pulmonary infarction given emboli. There is again emphysema. 2. There is some coronary calcification. Electronically signed by: Kenyon Nicole MD (02/16/2019 5:10 PM) [id number]
[2019-02-16 19:14] VITALS: BP 130/71
[2019-02-16] MEDS: ACETAMINOPHEN 325 MG TABLET PO PRN (20:12)
[2019-02-17 00:15] VITALS: BP 101/66
[2019-02-17 05:08] VITALS: BP 112/67
[2019-02-17] MEDS: CALCIUM CARBONATE 500 MG TAB.CHEW PO SCH ×3 (07:56→21:00)
[2019-02-17] MEDS: LACTOBACILLUS RHAMNOSUS GG 1 CAPSULE. PO SCH ×2 (07:56→21:00)
[2019-02-17] MEDS: FERROUS SULFATE 325 MG TABLET. PO SCH ×2 (07:56→21:00)
[2019-02-17] MEDS: PANTOPRAZOLE 40 MG TABLET. PO SCH (07:56)
[2019-02-17] MEDS: ASPIRIN ENTERIC COATED 81 MG TABLET.DR. PO SCH (07:56)
[2019-02-17] MEDS: POTASSIUM CHLORIDE 20 MEQ TABLET.ER. PO SCH (07:56)
[2019-02-17 10:43] VITALS: BP 126/69
--- NOTE | 2019-02-17 13:19 | PN ---
DATE: 02/16/2019 SUBJECTIVE: The patient is resting, slightly propped up in bed, clearly tachypneic, somewhat flushed, although he is afebrile today. Continue to be tachycardic. His lab work showed his white cell count was normal at 6600. PHYSICAL EXAMINATION: GENERAL: When I examined him, he looked flushed, pale. No jaundice, cyanosis or thyromegaly. No jugular venous distension. No limb edema. VITAL SIGNS: Her heart rate was 118, blood pressure was 111/71, temperature was 98.4, respiratory rate was 20, and oxygen saturation was 95% on 2 liters of oxygen. HEAD, EYES, EARS, NOSE AND THROAT: Showed normocephalic, atraumatic. NECK: Supple. HEART: Showed normal first and second heart sounds. No gallop, rub or murmur. CHEST: ____ shows central trachea, equally reduced expansion, reduced air entry, vesicular breath sounds. No crepitation or rhonchi. ABDOMEN: Slightly distended, soft, nontender. NEUROLOGIC: He is awake, alert, responding appropriately. All cranial nerves intact. He moves extremities without difficulty. He ambulates with a walker with standby assist. He desaturates on exertion and is very short of breath with minimal exertion. His intake was 2315, output was not recorded. LABORATORY DATA: Lab work this morning showed a white cell count 6600, hemoglobin 8.3, hematocrit 25, MCV 96, platelet count of 118,000. Serum sodium was 133, potassium 3.5, chloride 102, bicarbonate 21, anion gap of 10, BUN 20, creatinine 0.8, estimated GFR was 93 mL per minute, his glucose 117, calcium was 7.3. Total bilirubin, AST, ALT, alkaline phosphatase were normal. Total protein was 5.1, albumin was 1.7. His influenza A and B are negative so far. His blood cultures are so far negative. ASSESSMENT: 1. Sepsis, source of which is not clear. The patient has obviously known to have COPD. 2. Saddle embolus, treated with TPA and heparin for acute blood loss anemia for which he had an inferior vena cava filter and his heparin was discontinued. PLAN: My plan is to arrange for him to have another CT angio of the chest and decide further management accordingly. CLIVE CHUNG MD DR: Baylee JOB#: [id number] / [id number]
[2019-02-17 14:38] VITALS: BP 110/63
[2019-02-17] MEDS ORDERED: PIP/TAZO PER PHARMACY MC PRN (16:00)
[2019-02-17] MEDS ORDERED: VANCOMYCIN 2 GM in IV NORMAL SALINE 500ML 500 ML IV ONE (16:15)
[2019-02-17] MEDS: VANCOMYCIN PER PHARMACY MC PRN (16:34)
--- NOTE | 2019-02-17 16:35 | NUR ---
Pharmacy Vancomycin Dosing Note S:Consulted to monitor and dose vancomycin started 02/17/19. O:RUBI BRITT is a 78 year old M with Sepsis, . Height: 6 feet, 2 inches Weight: 97.513610 kg [place] Body Weight: 82.20 Adjusted Body Weight: 88.16 Dosing Weight: Actual Other Antibiotics: ZOSYN LABS: Last BUN: 20 Last Creatinine: 0.8 Creatinine Clearance: 70.9 Last WBC: 6.6 Last Procalcitonin: Tmax (past 24 hours): Microbiology: I/O: Drug Levels: Last level: on at Last dose given at Vancomycin Dosing: Loading Dose: 2000 mg x1 Dosing Weight: Actual Target Trough: 15-20 A: Based on: PHYSICIAN REQUEST FOR DOSING P: 1. Begin Vancomycin 2000MG LOADING THEN 1500 mg IV q12h 2. Follow up Trough level on 02/19/19 at 0430 (or before 4rd dose) 3. Pharmacy will continue to monitor, follow and adjust therapy as needed. SONI WEI, 02/17/19 [id number]
[2019-02-17 16:58] LABS: BGAS PH 7.44 (7.35-7.46)
--- NOTE | 2019-02-17 17:06 | NUR ---
NURSING NOTES: PATIENT DISCHARGED TO HOME. ALL DISCHARGE INSTRUCTIONS SENT HOME WITH PATIENT WITH VERBAL UNDERSTANDING OF INSTRUCTIONS. ALL PATIENT BELONGINGS SENT HOME WITH PATIENT INCLUDING MONEY FROM THE [facility]. PATIENT LEFT PER [employer] [facility]. Addendum: 02/17/19 at 1759 by EARLENE CHATMAN RN RN WRONG PATIENT CHART.
[2019-02-17 19:01] VITALS: BP 114/57
[2019-02-17] MEDS: PIPERACILLIN/TAZOBACTAM 4.5 GM in IV NORMAL SALINE 50ML 50 ML IV SCH (19:12)
[2019-02-17] MEDS: ACETAMINOPHEN 325 MG TABLET PO PRN (21:00)
[2019-02-18] VITALS (7 sets, daily range): BP systolic 99–132; BP diastolic 60–79
[2019-02-18] MEDS: PIPERACILLIN/TAZOBACTAM 4.5 GM in IV NORMAL SALINE 50ML 50 ML IV SCH ×3 (02:38→20:00)
--- NOTE | 2019-02-18 03:18 | NUR ---
Pt states he's been having a soreness in his lower left chest when taking a breath in over the last day but he cannot remember if he's told anyone about it before now. Pt rates pain with inhalation 11/26 but declines pain medication or any other medication. Pt states,"I have enough pills in my belly. I don't want to take anything else." Vital signs measured and within normal limits. Pt head of bed raised to ease breathing. Pt states he doesn't want anything else done right now. He only wants to sleep. Will continue to monitor.
[2019-02-18] MEDS: HYDROcodone/APAP 5/325MG 1 TAB TABLET PO PRN ×2 (04:03→11:33)
--- NOTE | 2019-02-18 04:39 | NUR ---
Pt asking for "some kind of medication." He states,"...chest feels like a fist hitting at the bottom of his ribs on the left side." Pain, medications, and effects discussed with the patient. Lortab given. Will continue to monitor.
[2019-02-18] MEDS: VANCOMYCIN 1.5 GM in IV NORMAL SALINE 500ML 500 ML IV SCH ×2 (05:11→17:12)
--- NOTE | 2019-02-18 05:35 | PN ---
DATE: 02/17/2019 SUBJECTIVE: The patient is resting, slightly propped up in bed, has refused therapy, feeling very lethargic and sleepy, not feeling well, although specifically denied any chest pain. His blood culture and urine culture, blood culture showed no growth after 2 days. PHYSICAL EXAMINATION: GENERAL: When I examined him this afternoon, he looked flushed, slightly pale, but no jaundice, cyanosis or thyromegaly. No jugular venous distention. No limb edema. VITAL SIGNS: His heart rate was 123, blood pressure was 110/63, temperature was 98.6, respiratory rate was 24, and oxygen saturation was 93% on 2 liters of oxygen. HEAD, EYES, EARS, NOSE, AND THROAT: Showed normocephalic, atraumatic. NECK: Supple. HEART: Showed normal first and second heart sounds with no gallop, rub or murmur. CHEST: Clear to auscultation. No crepitation or rhonchi. ABDOMEN: Distended, soft, nontender. No guarding or rigidity. No organomegaly. All hernial orifice intact. Bowel sounds normal. NEUROLOGIC: He was somewhat lethargic, but arousable. All cranial nerves are intact. He moves his extremities without difficulty, although he is mostly bedbound. He does manage to walk to the bathroom with assistance. His intake was 2370, no output was recorded. LABORATORY DATA: Her lab work this morning showed a serum sodium 133, potassium 3.5, chloride 102, bicarbonate 21, anion gap of 10, BUN 20, creatinine 0.8, estimated GFR was 94 mL per minute, his glucose 117, calcium was 7.3. Total bilirubin, AST, ALT, alkaline phosphatase were normal. Total protein was 5.1, albumin was 1.7. His white cell count was 6600, hemoglobin 8.3, hematocrit 25, MCV 96, and platelet count of 118,000. ASSESSMENT: 1. Fever without clear source of infection. 2. Chronic obstructive pulmonary disease. 3. Saddle embolus, treated with tPA and heparin. 4. Acute blood loss anemia for which he had an inferior vena cava filter. PLAN: My plan is to continue with IV antibiotic. I will expand coverage. We did a CT angio of the chest, which showed that the previously seen pulmonary emboli have overall decreased; however, there has been variable change of the left upper lobe now with more occlusive emboli posteriorly, although improved contrast opacification of more the anterior branches. There is now prominent left upper lobe infiltrate, could be a component of pulmonary infarction. There is again emphysema. There is some coronary calcification. I will probably discontinue ceftriaxone and start him on vancomycin as well as Zosyn. CLIVE CHUNG MD DR: BRIANNA/destiny JOB#: [id number] / [id number]
--- NOTE | 2019-02-18 06:41 | NUR ---
Pt expresses relief from pain after taking the Lortab. He states that the pain is "coming and going" though and has been up to a 2/10 which is a tolerable level.
[2019-02-18 07:19] LABS: HEMOGLOBIN 8.5 g/dL (13.0-17.5); RED BLOOD COUNT 2.81 x10^6/uL (4.30-5.70); RED CELL DISTRIBUTION WIDTH 20.7 % (11.5-14.5); WHITE BLOOD COUNT 5.1 x10^3/uL (4.0-11.0)
[2019-02-18 07:25] LABS: ALBUMIN 1.5 g/dL (3.4-5.0); ALBUMIN/GLOBULIN RATIO 0.4 (1.0-1.7); CALCIUM 7.4 mg/dL (8.5-10.1); CREATININE 0.7 mg/dL (0.7-1.3); GFR 109.1; POTASSIUM 3.2 mmol/L (3.5-5.1); TOTAL BILIRUBIN 0.6 mg/dL (0.2-1.0)
[2019-02-18] MEDS ORDERED: POTASSIUM CHLORIDE 20 MEQ TABLET.ER. PO ONE (08:45)
[2019-02-18] MEDS: CALCIUM CARBONATE 500 MG TAB.CHEW PO SCH ×3 (09:09→20:38)
[2019-02-18] MEDS: ASPIRIN ENTERIC COATED 81 MG TABLET.DR. PO SCH (09:09)
[2019-02-18] MEDS: LACTOBACILLUS RHAMNOSUS GG 1 CAPSULE. PO SCH ×2 (09:09→20:38)
[2019-02-18] MEDS: PANTOPRAZOLE 40 MG TABLET. PO SCH (09:09)
[2019-02-18] MEDS: FERROUS SULFATE 325 MG TABLET. PO SCH ×4 (09:09→20:38)
[2019-02-18] MEDS: POTASSIUM CHLORIDE 20 MEQ TABLET.ER. PO SCH (09:09)
[2019-02-18] MEDS ORDERED: IV NORMAL SALINE 1,000ML 1,000 ML IV ONE (11:45)
--- NOTE | 2019-02-18 12:30 | PDOC ---
PROVIDER NOTE PROVIDER NOTE PROVIDER NOTE Cardiology progress note: Brief history: Mr. Calloway is a 78-year-old man with known history of large saddle pulmonary embolus initially treated with anticoagulation but subsequent only treated with a IVC filter due to GI bleeding while anticoagulated. He was convalescing well at the rehabilitation facility and was admitted due to worsening dyspnea and tachycardia. Cardiology has been asked to evaluate him for chest pain Subjective: Patient reports chest pain when coughing. He has some pleuritic pain as well as some chest pressure occasionally. Recently while he was convalescing at the rehabilitation facility he was able to ambulate without any significant problems. Today his most pressing issue is cough with productive sputum. Objective: Vital signs reviewed, heart rate 130, blood pressure 107/62 In general he appeared fatigued but otherwise alert and oriented Head and neck exam is otherwise unremarkable Cardiac exam reveals sinus rhythm without any obvious murmurs or rubs Bilateral rhonchi with upper airway sounds noted on lung examination No significant lower extremity edema Diagnostic studies and laboratory studies reviewed Impression: 1. Sinus tachycardia likely reactive due to pneumonia and PE 2. Chest pain likely pruritic in nature with previous echocardiogram demonstrating normal LV function and moderate RV dysfunction 3. Pneumonia based on CT scan 4. Prior history of GI bleeding Recommendations: 1. We will plan for 1 L of IV fluid bolus as he appears to be slightly dehydrated especially in the setting of a known infection and tachycardia 2. Consider initiation of anticoagulation as he may have had further thrombus removed from his leg to the lung. Supportive care. Critically ill. ROOSEVELT COLEMAN MD Feb 18, 2019 12:30
[2019-02-18] MEDS ORDERED: HEPARIN 25,000UTS/500ML PREMIX 500 ML IV PRN (14:00)
[2019-02-18] MEDS ORDERED: HEPARIN for IV BOLUS 10,000 UNIT/10 ML VIAL. IV PRN ×2 (14:00)
[2019-02-18] MEDS ORDERED: HEPARIN for IV BOLUS 10,000 UNIT/10 ML VIAL. IV ONE (14:30)
[2019-02-18 14:52] LABS: BASO % 0 % (0-3); EOS % 1 % (0-3); HEMOGLOBIN 8.9 g/dL (13.0-17.5); LYMPH # 0.2 x10^3/uL (1.0-4.8); LYMPH % 4 % (24-48); MEAN CORPUSCULAR HEMOGLOBIN 30 pg (25-35); MEAN CORPUSCULAR HGB CONC 32 g/dL (31-37); MEAN CORPUSCULAR VOLUME 96 fL (79-100); MONO # 0.2 x10^3/uL (0.0-1.1); MONO % 4 % (0-9); NEUT # 4.1 x10^3uL (1.8-7.7); NEUT % 92 % (31-73); PLATELET COUNT 157 x10^3/uL (140-400); RED BLOOD COUNT 2.92 x10^6/uL (4.30-5.70); RED CELL DISTRIBUTION WIDTH 21.6 % (11.5-14.5); WHITE BLOOD COUNT 4.5 x10^3/uL (4.0-11.0)
[2019-02-18] MEDS: HEPARIN 25,000UTS/500ML PREMIX 500 ML IV PRN ×2 (16:02→23:13)
[2019-02-18 16:04] LABS: % BANDS 4 % (0-9); % LYMPHS 2 % (24-48); % METAS 1 % (0-0); % MONOS 3 % (0-10); % SEGS 90 % (35-66)
[2019-02-18 16:06] LABS: PLT ESTIMATE ADEQUATE (ADEQUATE)
[2019-02-18 16:11] LABS: ANISOCYTOSIS SLIGHT
[2019-02-18 18:39] LABS: FECAL OB PT NEGATIVE (NEG)
[2019-02-18 22:28] LABS: HEMATOCRIT 27.8 % (39.0-53.0); HEMOGLOBIN 8.7 g/dL (13.0-17.5); RED BLOOD COUNT 2.86 x10^6/uL (4.30-5.70); RED CELL DISTRIBUTION WIDTH 21.3 % (11.5-14.5); WHITE BLOOD COUNT 5.5 x10^3/uL (4.0-11.0)
--- NOTE | 2019-02-18 23:00 | PN ---
DATE: 02/18/2019 SUBJECTIVE: The patient is resting, slightly propped up in bed, in no apparent respiratory distress. He continued to complain of shortness of breath, cough, has had tachycardia with heart rate that goes up to 114. He was seen by Dr. Wells recommended to give him IV fluid and perhaps reconsidering anticoagulation. PHYSICAL EXAMINATION: GENERAL: When I examined him this afternoon, he was resting slightly propped up in bed, slightly tachypneic, but seemed to be much better than yesterday. He was pale, no jaundice, cyanosis or thyromegaly. No jugular venous distension. No limb edema. VITAL SIGNS: His heart rate was 129, blood pressure was 132/79, temperature was 97.8, respiratory rate was 24, and oxygen saturation was 94% on 3 liters of oxygen. HEAD, EYES, EARS, NOSE AND THROAT: Showed normocephalic, atraumatic. NECK: Supple. HEART: Showed normal first and second heart sounds with no gallop, rub or murmur. CHEST: Shows central trachea, equally reduced expansion, reduced air entry, vesicular sounds. I could not really appreciate any crepitation or rhonchi. ABDOMEN: Distended, soft, nontender. NEUROLOGIC: He is awake, alert, responding appropriately. All cranial nerves are intact. He moves extremities without difficulty. He ambulates with a walker. His intake over the last 24 hours was 1200, no output was recorded as of this morning. LABORATORY DATA: His lab work this morning showed a white cell count 5100, hemoglobin 8.5, hematocrit 27, MCV 96, and platelet count of 147,000. Serum sodium 138, potassium 3.2, chloride 104, bicarbonate 24, anion gap of 10, BUN 13, creatinine 0.7, estimated GFR was 109 mL per minute, his glucose 115, calcium was 7.4. Total bilirubin, AST, ALT, alkaline phosphatase were normal. Total protein was 5, albumin was 1.5. ASSESSMENT: 1. Fever, possible healthcare-associated pneumonia for which I have started him on vancomycin as well as Zosyn. 2. Chronic obstructive pulmonary disease exacerbation. 3. Saddle embolus, treated with TPA and heparin. 4. Acute blood loss anemia for which he has an inferior vena cava filter. 5. Sinus tachycardia, likely reactive with possible dehydration. He was given a liter of fluid. He was seen by Dr. Wells who recommended considering anticoagulation, was started on heparin drip and decide the further management accordingly. CLIVE CHUNG MD DR: BRIANNA/destiny JOB#: [id number] / [id number]
[2019-02-19] MEDS: PIPERACILLIN/TAZOBACTAM 4.5 GM in IV NORMAL SALINE 50ML 50 ML IV SCH ×3 (01:55→17:44)
[2019-02-19 04:25] LABS: HEMOGLOBIN 8.5 g/dL (13.0-17.5); MEAN CORPUSCULAR HEMOGLOBIN 30 pg (25-35); MEAN CORPUSCULAR HGB CONC 31 g/dL (31-37); MEAN CORPUSCULAR VOLUME 96 fL (79-100); NEUT % 87 % (31-73); PLATELET COUNT 183 x10^3/uL (140-400); WHITE BLOOD COUNT 3.9 x10^3/uL (4.0-11.0)
[2019-02-19 04:28] LABS: BASO % 1 % (0-3); EOS % 1 % (0-3); LYMPH # 0.3 x10^3/uL (1.0-4.8); LYMPH % 7 % (24-48); MONO # 0.2 x10^3/uL (0.0-1.1); MONO % 4 % (0-9); NEUT # 3.4 x10^3uL (1.8-7.7)
[2019-02-19 04:37] LABS: ALBUMIN 1.4 g/dL (3.4-5.0); ALBUMIN/GLOBULIN RATIO 0.4 (1.0-1.7); CALCIUM 7.2 mg/dL (8.5-10.1); CREATININE 0.8 mg/dL (0.7-1.3); GFR 93.5; POTASSIUM 3.2 mmol/L (3.5-5.1); TOTAL BILIRUBIN 0.6 mg/dL (0.2-1.0); VANC TR 15.7 mcg/mL (10.0-20.0)
[2019-02-19] MEDS: HEPARIN 25,000UTS/500ML PREMIX 500 ML IV PRN ×2 (05:08→10:10)
[2019-02-19] MEDS: VANCOMYCIN 1.5 GM in IV NORMAL SALINE 500ML 500 ML IV SCH ×2 (05:09→17:44)
[2019-02-19 05:52] VITALS: BP 107/65
[2019-02-19] MEDS: VANCOMYCIN PER PHARMACY MC PRN (07:46)
--- NOTE | 2019-02-19 07:46 | NUR ---
Pharmacy Vancomycin Dosing Note S:Consulted to monitor and dose vancomycin started 02/17/19. O:RUBI BRITT is a 78 year old M with Sepsis, . Height: 6 feet, 2 inches Weight: 101.021319 kg [place] Body Weight: 82.20 Adjusted Body Weight: 89.84 Dosing Weight: Actual Other Antibiotics: ZOSYN LABS: Last BUN: 11 Last Creatinine: 0.8 Creatinine Clearance: 77.4 Last WBC: 3.9 Last Procalcitonin: Tmax (past 24 hours): Microbiology: I/O: Drug Levels: Last Trough level: 15.7 on 02/19/19 at 0415 Last dose given 02/18/19 at 1712 Vancomycin Dosing: Loading Dose: 2000 mg x1 Dosing Weight: Actual Target Trough: 15-20 A: Based on: Physician request for dosing P: 1. Continue Vancomycin 1500 mg IV q12h 2. Follow up Trough level on 02/20/19 at 1630 -note with time change this trough of 15.7 was at 25hrs. We will recheck tomorrow afternoon to make sure not accumulating due to age of patient. 3. Pharmacy will continue to monitor, follow and adjust therapy as needed. SONI WEI, 02/19/19 0743
[2019-02-19] MEDS ORDERED: POTASSIUM CHLORIDE 20 MEQ TABLET.ER. PO ONE (08:00)
[2019-02-19] MEDS ORDERED: SALIVA STIMULANT AGENT 44ML SPRAY BOTTLE. PO PRN (08:15)
[2019-02-19] MEDS: LACTOBACILLUS RHAMNOSUS GG 1 CAPSULE. PO SCH ×2 (08:30→21:08)
[2019-02-19] MEDS: ASPIRIN ENTERIC COATED 81 MG TABLET.DR. PO SCH (08:30)
[2019-02-19] MEDS: PANTOPRAZOLE 40 MG TABLET. PO SCH (08:30)
[2019-02-19] MEDS: FERROUS SULFATE 325 MG TABLET. PO SCH ×2 (08:30→21:08)
[2019-02-19] MEDS: CALCIUM CARBONATE 500 MG TAB.CHEW PO SCH ×3 (08:31→21:08)
[2019-02-19] MEDS: POTASSIUM CHLORIDE 20 MEQ TABLET.ER. PO SCH ×2 (08:31→21:08)
[2019-02-19 10:39] VITALS: BP 104/68
--- NOTE | 2019-02-19 14:27 | PDOC ---
PROVIDER NOTE PROVIDER NOTE PROVIDER NOTE Cardiology Progress Note: S: No acute events. After anticoagulation and 1L fluid bolus, no significant change Continues to cough with pleuritic chest pain. O: VSS, remains tachycardia Lungs with decreased breath sounds at the bases. Mild LE edema. Tachycardia but regular rhythm Labs reviewed: Prior echo with normal EF and severe pulmonary HTN Impression: 1. P.E 2. Possible PNA versus cor pulmonale and diastolic HF Recs 1. Check repeat CXR, BNP and procalcitonin to help differentiate between diastolic HF/ versus PNA. No clear fluid on CTA 3 days ago. Supportive care. ROOSEVELT COLEMAN MD Feb 19, 2019 14:27
[2019-02-19 15:02] VITALS: BP 107/64
--- NOTE | 2019-02-19 15:54 | RAD ---
PORTABLE CHEST 1V INDICATION: Dyspnea. COMPARISON STUDY: Radiograph 02/15/2019. CT 02/16/2019. FINDINGS: Lungs: Normal lung volume. Stable left upper lobe consolidation. The tracheobronchial tree and hilar structures are normal. Pleura: No pleural effusion or pneumothorax. Heart and Mediastinum: Stable cardiomediastinal silhouette and great vessels. IMPRESSION: Stable left upper lobe consolidation. Electronically signed by: Kenyon Schwartz MD (02/19/2019 3:51 PM) [facility]
[2019-02-19] MEDS: methylPREDNISolone SOD SUCC PF 40 MG/ML VIAL. IV SCH ×2 (16:11→21:07)
[2019-02-19] MEDS: IPRATRPIUM/ALBUTEROL 0.5/2.5MG 3 ML NEBU. NEB SCH ×2 (17:45→20:29)
[2019-02-19 19:32] VITALS: BP 91/55
--- NOTE | 2019-02-19 23:30 | PN ---
DATE: 02/19/2019 SUBJECTIVE: The patient is sitting at the edge of the bed, continued to be tachypneic, tachycardic, do have cough with mostly dry. He is unable to expectorate anything. He did receive 1 liter of fluid yesterday and we did start him on heparin as per Dr. Wells's recommendation. PHYSICAL EXAMINATION: GENERAL: When I examined him this afternoon, he was sitting at the edge of the bed, clearly slightly tachypneic, pale, but no jaundice, cyanosis or thyromegaly. No jugular venous distension. No lower limb edema. VITAL SIGNS: Her heart rate was 113, blood pressure was 104/68, temperature was 98.8, respiratory rate was 24, and oxygen saturation was 90% on 3 liters of oxygen by nasal cannula. HEAD, EYES, EARS, NOSE AND THROAT: Showed normocephalic, atraumatic. NECK: Supple. HEART: Showed normal first and second heart sounds. No gallop or murmur. CHEST: Clear to auscultation. No crepitation or rhonchi. ABDOMEN: Distended, soft, nontender. No guarding or rigidity. No organomegaly. All hernial orifice intact. Bowel sounds normal. NEUROLOGIC: He was awake, alert, responding appropriately. All cranial nerves are intact. He moves extremities without difficulty, ambulates with a walker. His intake is 1800, no output was recorded. LABORATORY DATA: Her lab work this morning showed a white cell count 3900, hemoglobin 8.5, hematocrit 27, MCV 96, and platelet count 183,000. Serum sodium was 138, potassium 3.2, chloride 103, bicarbonate 24, anion gap of 11, BUN 11, creatinine 0.8, estimated GFR was 94 mL per minute. His glucose 130, calcium was 7.2. Total bilirubin, AST, ALT, alkaline phosphatase were normal. Total protein was 5, albumin was 1.4. His stool for occult blood was negative. Toxic screen showed vancomycin trough level was 15.7. His influenza A and B were negative. ASSESSMENT: 1. Fever, possible healthcare-associated pneumonia for which I started him on vancomycin as well as Zosyn. 2. Chronic obstructive pulmonary disease exacerbation. 3. Saddle embolus, treated with TPA and heparin. 4. Acute blood loss anemia for which he has an inferior vena cava filter. 4. Sinus tachycardia, likely reactive with possible dehydration. He did receive a liter of IV fluid. We did start him on heparin drip as per protocol yesterday. He has hypokalemia, which we will start him on potassium supplement. We will continue with IV fluid, IV antibiotic, continue with bronchodilator and added Mucinex 600 mg twice a day and potassium chloride 20 mEq twice a day. CLIVE CHUNG MD DR: BRIANNA/destiny JOB#: [id number] / [id number]
[2019-02-20] MEDS: PIPERACILLIN/TAZOBACTAM 4.5 GM in IV NORMAL SALINE 50ML 50 ML IV SCH ×3 (01:45→17:17)
[2019-02-20] MEDS: VANCOMYCIN 1.5 GM in IV NORMAL SALINE 500ML 500 ML IV SCH (04:41)
[2019-02-20] MEDS: IPRATRPIUM/ALBUTEROL 0.5/2.5MG 3 ML NEBU. NEB SCH ×4 (04:49→21:59)
[2019-02-20] MEDS: methylPREDNISolone SOD SUCC PF 40 MG/ML VIAL. IV SCH ×3 (05:06→20:15)
[2019-02-20 05:29] VITALS: BP 107/66
[2019-02-20] MEDS: HEPARIN 25,000UTS/500ML PREMIX 500 ML IV PRN (06:18)
[2019-02-20 06:42] LABS: CALCIUM 7.1 mg/dL (8.5-10.1); CREATININE 0.9 mg/dL (0.7-1.3); GFR 81.6; POTASSIUM 3.1 mmol/L (3.5-5.1)
[2019-02-20] MEDS: PANTOPRAZOLE 40 MG TABLET. PO SCH (07:37)
[2019-02-20] MEDS: FERROUS SULFATE 325 MG TABLET. PO SCH ×2 (07:38→20:16)
[2019-02-20] MEDS: POTASSIUM CHLORIDE 20 MEQ TABLET.ER. PO SCH ×3 (07:38→17:16)
[2019-02-20] MEDS: ASPIRIN ENTERIC COATED 81 MG TABLET.DR. PO SCH (07:39)
[2019-02-20] MEDS: CALCIUM CARBONATE 500 MG TAB.CHEW PO SCH ×3 (07:39→20:15)
[2019-02-20] MEDS: LACTOBACILLUS RHAMNOSUS GG 1 CAPSULE. PO SCH ×2 (07:39→20:14)
[2019-02-20 09:40] VITALS: BP 118/72
--- NOTE | 2019-02-20 13:20 | PDOC ---
PROVIDER NOTE PROVIDER NOTE PROVIDER NOTE Cardiology progress note Subjective: No acute chest pain. His continued dyspnea due to difficulty with expectoration and is fatigued with ambulation Objective: a/o x 3. nad bilateral rhonchi persist, less wheezing today No edema Neck veins flat Diagnostic studies reviewed Chest x-ray with consolidation persistent Labs grossly unchanged Impression: 1. Pulmonary embolus 2. Probable pneumonia 3. Dyspnea and tachycardia secondary to above 4. Probable mild diastolic heart failure without any obvious evidence of volume overload Recommend issues: 1. Continue current medical therapy. Discussed with ROOSEVELT Roberts MD Feb 20, 2019 13:20
[2019-02-20 13:54] VITALS: BP 104/68
[2019-02-20] MEDS ORDERED: POTASSIUM CHLORIDE 20 MEQ TABLET.ER. PO ONE (14:00)
[2019-02-20] MEDS: VANCOMYCIN PER PHARMACY MC PRN ×2 (16:50→17:43)
[2019-02-20] MEDS ORDERED: ANTI-COAG MONITOR BY PHARMACY. MC PRN (17:00)
[2019-02-20 17:04] LABS: VANC TR 22.2 mcg/mL (10.0-20.0)
--- NOTE | 2019-02-20 17:45 | NUR ---
Pharmacy Vancomycin Dosing Note S:Consulted to monitor and dose vancomycin started 02/17/19. O:RUBI BRITT is a 78 year old M with Sepsis, . Height: 6 feet, 2 inches Weight: 100.268415 kg [place] Body Weight: 82.20 Adjusted Body Weight: 89.84 Dosing Weight: [place] Other Antibiotics: ZOSYN LABS: Last BUN: 11 Last Creatinine: 0.9 Creatinine Clearance: 77 Last WBC: 3.9 Last Procalcitonin: 2.26 Tmax (past 24 hours): 97.7 Microbiology: I/O: 1740/5 VOIDS Drug Levels: Last Trough level: 22.2 on 02/20/19 at 1630 Last dose given 02/20/19 at 0400 Vancomycin Dosing: Loading Dose: 2000 mg x1 Dosing Weight: [place] Target Trough: 15-20 A: Based on: Trough P: 1. Begin Vancomycin 1250 mg IV q12h 2. Follow up Trough level on 02/22/19 at 0830 3. Pharmacy will continue to monitor, follow and adjust therapy as needed. ASHER VELASCO, 02/20/19 [id number]
[2019-02-20 19:41] VITALS: BP 116/70
[2019-02-20] MEDS: VANCOMYCIN 1.25 GM in IV NORMAL SALINE 250ML 250 ML IV SCH (21:50)
[2019-02-20 22:36] VITALS: BP 102/57
[2019-02-21] MEDS: HEPARIN 25,000UTS/500ML PREMIX 500 ML IV PRN (00:07)
--- NOTE | 2019-02-21 00:21 | PN ---
DATE: 02/20/2019 SUBJECTIVE: The patient is resting, slightly propped up in bed, in no apparent respiratory distress, continued to be extremely short of breath on minimal exertion. Denied any cough, phlegm or hemoptysis. PHYSICAL EXAMINATION: GENERAL: When I examined him today, he was resting, slightly propped up in bed, in no apparent respiratory distress, was slightly pale, no jaundice, cyanosis or thyromegaly. No jugular venous distension. No limb edema. VITAL SIGNS: His heart rate was 92, blood pressure 118/72, temperature was 97.5, respiratory rate 22 and oxygen saturation was 93% on 3 liters of oxygen. HEAD, EYES, EARS, NOSE AND THROAT: Showed normocephalic, atraumatic. NECK: Supple. HEART: Showed normal first and second heart sounds. No gallop, rub or murmur. CHEST: Showed central trachea, equally reduced expansion, reduced air entry, vesicular breath sounds with crepitation mostly in the left upper lobe anteriorly. I could not appreciate any rhonchi. ABDOMEN: Distended, soft, nontender. No guarding or rigidity. No organomegaly. All hernial orifice intact. Bowel sounds normal. NEUROLOGIC: He is awake, alert, responding appropriately. All cranial nerves intact. He moves extremities without difficulty. He ambulates with a walker, although he becomes very short of breath on exertion. His intake over the last 24 hours was 3400, no output was recorded. LABORATORY DATA: Showed a white cell count of 3900, hemoglobin was 8.5, hematocrit 27, MCV 96, and platelet count of 183,000. His chemistry showed a serum sodium 139, potassium 3.1, chloride 104, bicarbonate 22, anion gap of 13, BUN 11, creatinine 0.9, estimated GFR was 81 mL per minute, his glucose was 142, calcium was 7.1. ASSESSMENT AND PLAN: 1. Fever with healthcare-associated pneumonia, for which he was started on vancomycin as well as Zosyn. 2. Chronic obstructive pulmonary disease exacerbation. 3. Saddle embolus, treated with TPA and heparin. 4. Acute blood loss anemia, for which he has an inferior vena cava filter. 5. Sinus tachycardia, likely reactive. 6. He has also hypokalemia. PLAN: My plan is to continue to replenish his potassium. Meanwhile, we will continue with all current plan of management for time being, including his antibiotics, heparin. I will check his H and H to make sure he is not bleeding again. CLIVE CHUNG MD DR: BRIANNA/destiny JOB#: [id number] / [id number]
[2019-02-21] MEDS: PIPERACILLIN/TAZOBACTAM 4.5 GM in IV NORMAL SALINE 50ML 50 ML IV SCH ×2 (01:06→11:02)
[2019-02-21 05:40] VITALS: BP 103/66
[2019-02-21] MEDS: IPRATRPIUM/ALBUTEROL 0.5/2.5MG 3 ML NEBU. NEB SCH ×4 (05:43→21:44)
[2019-02-21] MEDS: methylPREDNISolone SOD SUCC PF 40 MG/ML VIAL. IV SCH ×2 (06:08→21:05)
[2019-02-21 06:23] LABS: BASO % 0 % (0-3); EOS % 0 % (0-3); HEMATOCRIT 23.4 % (39.0-53.0); HEMOGLOBIN 7.4 g/dL (13.0-17.5); LYMPH # 0.2 x10^3/uL (1.0-4.8); LYMPH % 6 % (24-48); MEAN CORPUSCULAR HEMOGLOBIN 30 pg (25-35); MEAN CORPUSCULAR HGB CONC 32 g/dL (31-37); MEAN CORPUSCULAR VOLUME 96 fL (79-100); MONO # 0.1 x10^3/uL (0.0-1.1); MONO % 3 % (0-9); NEUT # 3.8 x10^3uL (1.8-7.7); NEUT % 92 % (31-73); PLATELET COUNT 270 x10^3/uL (140-400); RED BLOOD COUNT 2.44 x10^6/uL (4.30-5.70); RED CELL DISTRIBUTION WIDTH 21.2 % (11.5-14.5); WHITE BLOOD COUNT 4.2 x10^3/uL (4.0-11.0)
[2019-02-21 06:36] LABS: ALBUMIN 1.3 g/dL (3.4-5.0); ALBUMIN/GLOBULIN RATIO 0.4 (1.0-1.7); CALCIUM 7.4 mg/dL (8.5-10.1); CREATININE 0.8 mg/dL (0.7-1.3); GFR 93.5; POTASSIUM 3.7 mmol/L (3.5-5.1); TOTAL BILIRUBIN 0.4 mg/dL (0.2-1.0); TOTAL PROTEIN 4.9 g/dL (6.4-8.2)
[2019-02-21 07:35] LABS: FECAL OB PT POSITIVE (NEG)
[2019-02-21] MEDS: LACTOBACILLUS RHAMNOSUS GG 1 CAPSULE. PO SCH ×2 (08:51→21:05)
[2019-02-21] MEDS: POTASSIUM CHLORIDE 20 MEQ TABLET.ER. PO SCH ×2 (08:52→17:00)
[2019-02-21] MEDS: CALCIUM CARBONATE 500 MG TAB.CHEW PO SCH ×3 (08:52→21:00)
[2019-02-21] MEDS: PANTOPRAZOLE 40 MG TABLET. PO SCH (08:52)
[2019-02-21] MEDS: VANCOMYCIN 1.25 GM in IV NORMAL SALINE 250ML 250 ML IV SCH (08:53)
[2019-02-21] MEDS: FERROUS SULFATE 325 MG TABLET. PO SCH ×2 (09:00→21:00)
--- NOTE | 2019-02-21 09:23 | PDOC ---
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 Vitals Vitals Vital Signs Date Time Temp Pulse Resp B/P (MAP) Pulse Ox O2 Delivery O2 Flow Rate FiO2 02/21/19 05:43 94 Nasal Cannula 3.0 02/21/19 05:40 98.6 87 20 103/66 (78) Weight Weight [ ] Input and Output I.O. Intake and Output 02/21/19 07:00 Intake Total 620 ml Balance 620 ml Intake Oral 620 ml # Voids 6 # Bowel Movements 4 Laboratory Labs Laboratory Tests Test 02/19/19 09:45 02/19/19 11:22 02/19/19 16:00 02/19/19 22:00 Platelet Count 201 x10^3/uL (140-400) Activated Partial Thromboplast Time 43 SEC (23-33) 37 SEC (23-33) 52 SEC (23-33) TO-Qls-O-Type Natriuretic Peptide 2707 pg/mL (0-449) Procalcitonin 2.26 ng/mL (0.00-0.10) Test 02/20/19 06:02 02/20/19 16:30 02/21/19 05:45 02/21/19 07:05 Platelet Count 217 x10^3/uL (140-400) 270 x10^3/uL (140-400) Activated Partial Thromboplast Time 54 SEC (23-33) Sodium Level 139 mmol/L (136-145) 140 mmol/L (136-145) Potassium Level 3.1 mmol/L (3.5-5.1) 3.7 mmol/L (3.5-5.1) Chloride Level 104 mmol/L (98-107) 108 mmol/L (98-107) Carbon Dioxide Level 22 mmol/L (21-32) 25 mmol/L (21-32) Anion Gap 13 (6-14) 7 (6-14) Blood Urea Nitrogen 11 mg/dL (8-26) 13 mg/dL (8-26) Creatinine 0.9 mg/dL (0.7-1.3) 0.8 mg/dL (0.7-1.3) Estimated GFR (Cockcroft-Gault) 81.6 93.5 Glucose Level 242 mg/dL (70-99) 260 mg/dL (70-99) Calcium Level 7.1 mg/dL (8.5-10.1) 7.4 mg/dL (8.5-10.1) Vancomycin Level Trough 22.2 mcg/mL (10.0-20.0) Vancomycin Last Dose Date mar 07 Vancomycin Last Dose Time 0500 White Blood Count 4.2 x10^3/uL (4.0-11.0) Red Blood Count 2.44 x10^6/uL (4.30-5.70) Hemoglobin 7.4 g/dL (13.0-17.5) Hematocrit 23.4 % (39.0-53.0) Mean Corpuscular Volume 96 fL (79-100) Mean Corpuscular Hemoglobin 30 pg (25-35) Mean Corpuscular Hemoglobin Concent 32 g/dL (31-37) Red Cell Distribution Width 21.2 % (11.5-14.5) Neutrophils (%) (Auto) 92 % (31-73) Lymphocytes (%) (Auto) 6 % (24-48) Monocytes (%) (Auto) 3 % (0-9) Eosinophils (%) (Auto) 0 % (0-3) Basophils (%) (Auto) 0 % (0-3) Neutrophils # (Auto) 3.8 x10^3uL (1.8-7.7) Lymphocytes # (Auto) 0.2 x10^3/uL (1.0-4.8) Monocytes # (Auto) 0.1 x10^3/uL (0.0-1.1) Eosinophils # (Auto) 0.0 x10^3/uL (0.0-0.7) Basophils # (Auto) 0.0 x10^3/uL (0.0-0.2) BUN/Creatinine Ratio 16 (6-20) Total Bilirubin 0.4 mg/dL (0.2-1.0) Aspartate Amino Transf (AST/SGOT) 12 U/L (15-37) Alanine Aminotransferase (ALT/SGPT) 12 U/L (16-63) Alkaline Phosphatase 66 U/L (46-116) Total Protein 4.9 g/dL (6.4-8.2) Albumin 1.3 g/dL (3.4-5.0) Albumin/Globulin Ratio 0.4 (1.0-1.7) Stool Occult Blood Positive (NEG) Test 02/21/19 07:12 Activated Partial Thromboplast Time 48 SEC (23-33) Physical Exams HEENT: Neck Supple W Full Motion Chest: Symmetric Lungs: Other (diminished bases) Heart: S1S2, RRR Abdomen: Soft N/T Extremities: Other (trace bilateral LE edema, mild right wrist edema ) Neurology: alert, oriented, follow commands, other (flat affect ) Assessment Assessment 1. Pulmonary embolus; s/p IVC filter 01/20/19 2. ? GI bleed; hgb drop to 7.4. fecal occult +. heparin on hold 3. Probable pneumonia 4. Dyspnea and tachycardia secondary to above 5. Mild acute on chronic diastolic heart failure without any obvious evidence of volume overload 6. Coronary artery calcification as noted on CTA 7. Hypertension; controlled Recommendations PPI therapy. Consider Protonix gtt Hold ASA Monitor H and H Transfuse as warranted Ongoing antibiotic therapy Lasix PRN LUC BEGUM MD 02/21/19 1938: CARDIO Progress Notes Assessment Assessment Patient seen and examined. Agree with LENS MOLDER's assessment and plan Sinus tachy physiologic and improved CP pleuritic Ac on chronic diastolic HF better compensated PE s/p IVCF placeent Continue current management for anemia/GIB OMAR GARCES APRN Feb 21, 2019 09:23 LUC BEGUM MD Feb 21, 2019 19:38
--- NOTE | 2019-02-21 09:24 | NUR ---
Pt noted to have black and tarry stools this morning. Hmg dropped to 7.4 in last 2 days. Stool positive for blood. Heparin gtt stopped. Pt updated on situation. Pt is becoming more depressed, is just wanting to go home. States he is tired of being sick and tired. Pt is tired of "all of this". Rn spoke with patient about the option to stop all treatment and keeping him comfortable. Pt states he isn't ready to . RN told patient we would support him on whatever he chooses to do. Talked with Dr Acosta about starting protonix gtt, not at this time. Will recheck H/H at 1600, and transfuse as necessary. Left lower arm more swollen than last week, Maria Elena with Cardiology assessed, will continue to monitor and if swelling worsens then will order US. WCTM.
[2019-02-21 10:38] VITALS: BP 103/58
[2019-02-21 14:51] VITALS: BP 109/72
[2019-02-21 16:14] LABS: HEMATOCRIT 27.3 % (39.0-53.0); HEMOGLOBIN 8.4 g/dL (13.0-17.5)
[2019-02-21 19:31] VITALS: BP 106/63
[2019-02-21] MEDS: AMOXICILLIN/K CLAV 875/125MG TABLET. PO SCH (21:05)
[2019-02-21 23:26] VITALS: BP 104/66
--- NOTE | 2019-02-22 00:02 | PN ---
DATE: 02/21/2019 SUBJECTIVE: The patient is resting, slightly propped up in bed, in no apparent distress. He is obviously frustrated as he unfortunately started bleeding again. His hemoglobin has dropped down from 8.5-7.4. He has 2 bowel movements with tarry black with positive stool for occult blood. Therefore, we discontinued his heparin as well as aspirin. PHYSICAL EXAMINATION: GENERAL: However, when I saw him this afternoon, he looked well and was clearly in no apparent respiratory distress, pale, but no jaundice, cyanosis or thyromegaly. No jugular venous distention. No limb edema. VITAL SIGNS: His heart rate was 84, blood pressure was 103/58, temperature was 97.6, respiratory rate was 24, and oxygen saturation was 92% on 3 liters of oxygen. HEAD, EYES, EARS, NOSE AND THROAT: Showed normocephalic, atraumatic. NECK: Supple. HEART: Showed normal first and second heart sounds with no gallop, rub or murmur. CHEST: Clear to auscultation. No crepitation or rhonchi. ABDOMEN: Distended, soft, nontender. No guarding or rigidity. No organomegaly. All hernial orifices are intact. Bowel sounds normal. NEUROLOGI: Neurologically, he is awake, alert, responding appropriately. All cranial nerves are intact. He moves extremities without difficulty. His intake over the last 24 hours was 1700, no output was recorded. LABORATORY DATA: His lab work this morning showed a white cell count 4200, hemoglobin 7.4, hematocrit 33.4, MCV 96, and platelet count 270,000. His chemistry showed a serum sodium 140, potassium 3.7, chloride 108, bicarbonate 25, anion gap of 7, BUN 13, creatinine 0.8, estimated GFR was 94 mL per minute. His glucose was 260, calcium was 7.4. Total bilirubin, AST, ALT, alkaline phosphatase were normal. Total protein was 4.9, albumin was 1.3. ASSESSMENT: 1. Fever, likely due to healthcare-associated pneumonia for which we started him on vancomycin as well as Zosyn. His blood cultures are negative after 5 days and therefore, we discontinued his vancomycin. I will switch him to Augmentin 875 mg twice a day. 2. Chronic obstructive pulmonary disease exacerbation. 3. Saddle embolus, treated with TPA and heparin. 4. Acute blood loss anemia for which he has an inferior vena cava filter. While at [place], he lost a huge amount of blood. His hemoglobin dropped from 16-6.9. Unfortunately, he started bleeding again here. 5. Sinus tachycardia, likely reactive, improved. 6. He also has hypokalemia that has eventually improved. In fact, his potassium today is 3.7. 7. Severe protein-calorie malnutrition with serum albumin is only 1.3 g/dL. PLAN: My plan is to discontinue both Zosyn and vancomycin, start him on Augmentin and we will decide the further management according to his response. Unfortunately, his biggest problem is that he does not have Medicaid and has no benefits in the [facility]. CLIVE CHUNG MD DR: BRIANNA/destiny JOB#: [id number] / [id number]
[2019-02-22 05:27] VITALS: BP 132/81
[2019-02-22] MEDS: IPRATRPIUM/ALBUTEROL 0.5/2.5MG 3 ML NEBU. NEB SCH ×4 (05:48→20:38)
[2019-02-22] MEDS: AMOXICILLIN/K CLAV 875/125MG TABLET. PO SCH ×2 (08:08→21:20)
[2019-02-22] MEDS: LACTOBACILLUS RHAMNOSUS GG 1 CAPSULE. PO SCH ×2 (08:08→21:20)
[2019-02-22] MEDS: PANTOPRAZOLE 40 MG TABLET. PO SCH (08:08)
[2019-02-22] MEDS: POTASSIUM CHLORIDE 20 MEQ TABLET.ER. PO SCH ×2 (08:08→17:00)
[2019-02-22] MEDS: CALCIUM CARBONATE 500 MG TAB.CHEW PO SCH ×2 (08:08→14:00)
[2019-02-22] MEDS: FERROUS SULFATE 325 MG TABLET. PO SCH ×2 (08:09→21:00)
[2019-02-22] MEDS: methylPREDNISolone SOD SUCC PF 40 MG/ML VIAL. IV SCH ×3 (08:09→21:20)
--- NOTE | 2019-02-22 08:14 | PDOC ---
CARDIO Progress Notes Date & Time Date of Service DATE: 02/22/19 TIME: 08:13 Time of Evaluation 08:13 Subjective Notes No chest pain, palpitations. Mild SOA. Vitals Vitals Vital Signs Date Time Temp Pulse Resp B/P (MAP) Pulse Ox O2 Delivery O2 Flow Rate FiO2 02/22/19 05:49 95 Nasal Cannula 3.0 02/22/19 05:27 97.7 95 24 132/81 (98) Weight Weight [ ] Input and Output I.O. Intake and Output 02/22/19 07:00 Intake Total 850 ml Balance 850 ml Intake Oral 850 ml # Voids 4 # Bowel Movements 2 Laboratory Labs Laboratory Tests Test 02/20/19 16:30 02/21/19 05:45 02/21/19 07:05 02/21/19 07:12 Vancomycin Level Trough 22.2 mcg/mL (10.0-20.0) Vancomycin Last Dose Date mar 07 Vancomycin Last Dose Time 0500 White Blood Count 4.2 x10^3/uL (4.0-11.0) Red Blood Count 2.44 x10^6/uL (4.30-5.70) Hemoglobin 7.4 g/dL (13.0-17.5) Hematocrit 23.4 % (39.0-53.0) Mean Corpuscular Volume 96 fL (79-100) Mean Corpuscular Hemoglobin 30 pg (25-35) Mean Corpuscular Hemoglobin Concent 32 g/dL (31-37) Red Cell Distribution Width 21.2 % (11.5-14.5) Platelet Count 270 x10^3/uL (140-400) Neutrophils (%) (Auto) 92 % (31-73) Lymphocytes (%) (Auto) 6 % (24-48) Monocytes (%) (Auto) 3 % (0-9) Eosinophils (%) (Auto) 0 % (0-3) Basophils (%) (Auto) 0 % (0-3) Neutrophils # (Auto) 3.8 x10^3uL (1.8-7.7) Lymphocytes # (Auto) 0.2 x10^3/uL (1.0-4.8) Monocytes # (Auto) 0.1 x10^3/uL (0.0-1.1) Eosinophils # (Auto) 0.0 x10^3/uL (0.0-0.7) Basophils # (Auto) 0.0 x10^3/uL (0.0-0.2) Sodium Level 140 mmol/L (136-145) Potassium Level 3.7 mmol/L (3.5-5.1) Chloride Level 108 mmol/L (98-107) Carbon Dioxide Level 25 mmol/L (21-32) Anion Gap 7 (6-14) Blood Urea Nitrogen 13 mg/dL (8-26) Creatinine 0.8 mg/dL (0.7-1.3) Estimated GFR (Cockcroft-Gault) 93.5 BUN/Creatinine Ratio 16 (6-20) Glucose Level 260 mg/dL (70-99) Calcium Level 7.4 mg/dL (8.5-10.1) Total Bilirubin 0.4 mg/dL (0.2-1.0) Aspartate Amino Transf (AST/SGOT) 12 U/L (15-37) Alanine Aminotransferase (ALT/SGPT) 12 U/L (16-63) Alkaline Phosphatase 66 U/L (46-116) Total Protein 4.9 g/dL (6.4-8.2) Albumin 1.3 g/dL (3.4-5.0) Albumin/Globulin Ratio 0.4 (1.0-1.7) Stool Occult Blood Positive (NEG) Activated Partial Thromboplast Time 48 SEC (23-33) Test 02/21/19 15:55 Hemoglobin 8.4 g/dL (13.0-17.5) Hematocrit 27.3 % (39.0-53.0) Physical Exams HEENT: Neck Supple W Full Motion Chest: Symmetric Lungs: Other (diminished bases) Heart: S1S2, RRR Abdomen: Soft N/T Extremities: Other (1+ bilateral LE edema, ) Neurology: alert, oriented, follow commands Assessment Assessment 1. Pulmonary embolus; s/p IVC filter 01/20/19 2. ? GI bleed; hgb drop to 7.4. fecal occult +. heparin on hold. hgb back up to 8.4 3. Probable pneumonia 4. Dyspnea and tachycardia secondary to above; improved. HR controlled 5. Mild acute on chronic diastolic heart failure 6. Coronary artery calcification as noted on CTA 7. Hypertension; controlled 8. Protein calorie malnutrition. Mild anasarca Recommendations PPI therapy. Monitor H and H; transfuse as warranted Ongoing antibiotic therapy Supportive care from a CV standpoint OMAR GARCES APRN Feb 22, 2019 08:14
[2019-02-22] MEDS ORDERED: ALBUMIN HUMAN 25% 50 ML IV ONE (10:00)
[2019-02-22] MEDS ORDERED: FUROSEMIDE 40 MG/4 ML VIAL IVP ONE (10:00)
--- NOTE | 2019-02-22 10:19 | NUR ---
Lab unable to get blood from patient due to edema. IV leaking, unable to admin methylprednisone. Cardiology feels patient needs albumin and lasix IV for 3rd spacing. RN spoke with Dr Acosta, order received for PICC. Zonia with PICC notified.
[2019-02-22 10:34] VITALS: BP 124/61
--- NOTE | 2019-02-22 12:09 | NUR ---
Order Verified Yes Consent signed Yes Previous PICC placement No Past Medical/Surgical history and current diagnosis reviewed Yes Patient Medical /Surgical History Related to PICC line placement None Special considerations for PICC line placement Pt did not have large enough vessels on the right arm, left arm had a large enough basilic for a 5 croatian picc, Nurse states pt will be put on multiple Iv infusions, may need blood in future and lab unable to draw labs. PICC placement indication unable to draw labs Poor peripheral intravenous access Name of PICC Nurse Zonia Abdullahi RN
--- NOTE | 2019-02-22 12:12 | NUR ---
Procedure: Following complete explanation of the PICC procedure including the indications, risks, and potential complications, informed consent was obtained. The possibility for infection was discussed along with signs, symptoms, and prevention. All the questions were answered. IV Device Protocol was used. Written and verbal patient education was provided. Hand hygiene performed. Standardized central line checklist was utilized. The patient was placed in the supine position, unable to find large enough vessel in right arm, upon assessing the left arm a large enough vessel found for 5 libyan picc. The left arm was then prepped with chlorhexidine and patient draped with maximum sterile barrier. 1 mL 1% lidocaine was infiltrated into the skin to provide local anesthesia. A thorough assessment of left upper extremity completed. Using real-time ultrasound guidance and standardized micro puncture set, the basilic vein was punctured and a peel away sheath was placed using the modified Seldinger technique. A tip location device was used to ensure adequate catheter placement. The catheter was secured using a securement device and an antimicrobial patch was applied directly on the insertion site followed by a transparent dressing. All ports withdraw blood and flush without resistance. Patient tolerated the procedure without apparent complication. A Dual Lumen Power PICC placement successful and uncomplicated. Placement verified by EKG tip confirmation system with green p wave and tobi observed. Tip located in the low SVC per 3CG Complications: None
[2019-02-22 12:39] LABS: HEMOGLOBIN 8.5 g/dL (13.0-17.5); RED BLOOD COUNT 2.79 x10^6/uL (4.30-5.70); RED CELL DISTRIBUTION WIDTH 21.5 % (11.5-14.5); WHITE BLOOD COUNT 9.2 x10^3/uL (4.0-11.0)
[2019-02-22 12:49] LABS: CALCIUM 7.4 mg/dL (8.5-10.1); GFR 72.3; POTASSIUM 4.2 mmol/L (3.5-5.1)
[2019-02-22 15:11] VITALS: BP 117/73
[2019-02-22 19:30] VITALS: BP 119/74
--- NOTE | 2019-02-23 00:15 | PN ---
DATE: 02/22/2019 SUBJECTIVE: The patient is sitting in his chair, clearly very tachypneic, coughing brownish sputum. He has marked generalized anasarca for which he was seen by the Cardiology team, started him on human albumin and IV Lasix. PHYSICAL EXAMINATION: GENERAL: When I examined him this afternoon, he looked pale, but no jaundice, cyanosis or thyromegaly. No jugular venous distention, but generalized anasarca. VITAL SIGNS: Her heart rate was 90, blood pressure was 124/61, temperature was 97.6, respiratory rate was 24, and oxygen saturation was 93% on 3 liters of oxygen. HEAD, EYES, EARS, NOSE AND THROAT: Showed normocephalic, atraumatic. NECK: Supple. HEART: Showed normal first and second heart sounds. No gallop or murmur. CHEST: Shows central trachea, equal bilateral expansion, air entry, vesicular breath sounds with crepitation bilaterally. I could not appreciate any rhonchi. ABDOMEN: Distended, soft, nontender. NEUROLOGIC: He was awake, alert, responding appropriately. All cranial nerves are intact. He moves extremities without difficulty, ambulates with a walker with standby assist. His intake over the last 24 hours was 620, no output was recorded. LABORATORY DATA: Her lab work this morning showed a serum sodium 143, potassium 4.2, chloride 107, bicarbonate 26, anion gap of 10, BUN 15, creatinine 1, estimated GFR was 72 mL per minute. His blood sugar was 231 and calcium was 7.4. Her white cell count was 9200, hemoglobin 8.5, hematocrit 27, MCV 97 and platelet count 366,000. ASSESSMENT: 1. Fever, likely due to healthcare-associated pneumonia for which we started him on vancomycin as well as Zosyn. His blood cultures were negative after 5 days and therefore discontinued his vancomycin. I switched him to Augmentin 875 mg twice a day. 2. Chronic obstructive pulmonary disease exacerbation. 3. Saddle embolus, treated with TPA and heparin. 4. Acute blood loss anemia for which he has an inferior vena cava filter. While at [place], he lost a huge amount of blood. His hemoglobin dropped from 16 to 6.9. Unfortunately, he started bleeding again. 5. Sinus tachycardia, likely reactive, improved. 6. He has also hypokalemia that has eventually improved; in fact, his potassium today is 4.2. 7. Severe protein-calorie malnutrition, serum albumin is only 1.3 for which we started him on human albumin and Lasix. CLIVE CHUNG MD DR: BRIANNA/destiny JOB#: [id number] / [id number]
[2019-02-23] MEDS: IPRATRPIUM/ALBUTEROL 0.5/2.5MG 3 ML NEBU. NEB SCH ×4 (05:31→20:39)
[2019-02-23 06:29] LABS: HEMATOCRIT 25.2 % (39.0-53.0); HEMOGLOBIN 8.1 g/dL (13.0-17.5)
[2019-02-23 06:35] LABS: CALCIUM 7.6 mg/dL (8.5-10.1); CREATININE 0.9 mg/dL (0.7-1.3); GFR 81.6; POTASSIUM 3.8 mmol/L (3.5-5.1)
[2019-02-23 07:00] VITALS: BP 119/74
[2019-02-23] MEDS: FERROUS SULFATE 325 MG TABLET. PO SCH ×2 (09:00→21:00)
[2019-02-23] MEDS: POTASSIUM CHLORIDE 20 MEQ TABLET.ER. PO SCH ×2 (09:00→17:24)
[2019-02-23] MEDS: PANTOPRAZOLE 40 MG TABLET. PO SCH (09:00)
[2019-02-23] MEDS: methylPREDNISolone SOD SUCC PF 40 MG/ML VIAL. IV SCH ×2 (09:00→21:00)
[2019-02-23] MEDS: AMOXICILLIN/K CLAV 875/125MG TABLET. PO SCH ×2 (09:00→21:11)
[2019-02-23] MEDS: LACTOBACILLUS RHAMNOSUS GG 1 CAPSULE. PO SCH ×2 (09:01→21:11)
[2019-02-23] MEDS: CALCIUM CARBONATE 500 MG TAB.CHEW PO SCH ×3 (09:02→17:24)
[2019-02-23 11:25] VITALS: BP 137/62
--- NOTE | 2019-02-23 15:00 | PN ---
DATE: 02/23/2019 SUBJECTIVE: The patient is resting, slightly propped up in bed, in no apparent respiratory distress. He is awake, alert, continued to complain of cough with brownish sputum. Continued to be generally weak, tired, has had bilateral lower extremity edema. PHYSICAL EXAMINATION: GENERAL: When I examined him today, he looked pale, no jaundice, cyanosis, or thyromegaly. No jugular venous distension. Marked bilateral lower limb edema. VITAL SIGNS: Heart rate was 114, blood pressure was 137/62, temperature was 98.4, respiratory rate 22, and oxygen saturation was 92% on 3 liters of oxygen. HEAD, EYES, EARS, NOSE, AND THROAT: Normocephalic, atraumatic. NECK: Supple. HEART: Showed normal first and second heart sounds with no gallop, rub, or murmur. CHEST: Clear to auscultation. No crepitation or rhonchi. ABDOMEN: Distended, soft, nontender. No guarding or rigidity. No organomegaly. All hernial orifice intact. Bowel sounds normal. NEUROLOGIC: He is awake, alert, responding appropriately. All cranial nerves are intact. He moves extremities without difficulty. He is mostly bedbound, chair bound. He managed to walk for short distances, but became extremely short of breath. His intake was 850, output was 900. LABORATORY DATA: His lab work showed hemoglobin of 8.1, hematocrit 25.2. His chemistry showed a serum sodium of 142, potassium 3.8, chloride 105, bicarbonate 29, anion gap of 8, BUN 11, creatinine 0.9, estimated GFR was 81 mL per minute. His glucose was 109, calcium was 7.6. ASSESSMENT: 1. Healthcare-associated pneumonia for which he was treated with vancomycin as well as Zosyn. His blood cultures are negative after 5 days and therefore I discontinued his vancomycin. He was switched to Augmentin twice a day. 2. Chronic obstructive pulmonary disease exacerbation. 3. Saddle embolus, treated with TPA and heparin. 4. Acute blood loss anemia for which he has an inferior vena cava filter. While at [place], he lost a huge amount of blood. Hemoglobin has dropped from 16 to 6.9. We did restart heparin and unfortunately, he started bleeding again. 5. Sinus tachycardia, likely reactive. 6. Hypokalemia that has improved. His potassium is now 3.9. 7. Severe protein-calorie malnutrition. Serum albumin is only 1.3 mg/dL, which he was treated with human albumin and Lasix. 8. His overall prognosis is poor without anticoagulation. He probably throws clots to his lungs. Anticoagulation starts bleeding despite having an inferior vena cava filter. I have left a message with Joyce Dunaway at the [facility] to see if the patient can be transferred to [facility]. DICTATION ENDS HERE CLIVE CHUNG MD DR: BRIANNA/destiny JOB#: [id number] / [id number]
--- NOTE | 2019-02-23 15:21 | PN ---
DATE: SUBJECTIVE: The patient is resting, sitting slightly propped up in bed, clearly tachypneic. He is very short of breath on minimal exertion, like the generalized anasarca. He has massive saddle embolus, was treated at [facility] with tPA and heparin drip; however, he lost most of his blood there, and his hemoglobin dropped down from 16-6.9 and therefore, he had an inferior vena cava filter placed and his heparin drip was discontinued and is now transferred back to swing bed at [facility] to continue with rehabilitation. Unfortunately, he continued to throw clots to his lungs and also developed pneumonia, treated with IV antibiotic. He was seen in consultation by the Cardiology, who recommended starting him again on heparin drip. Unfortunately, he bled again and therefore, we discontinued his heparin. He is now extremely short of breath and unable really to walk any distance without being extremely short of breath and we have had a lengthy discussion with him and he expressed desire to go on hospice at the [facility]. PHYSICAL EXAMINATION: GENERAL: When I examined him this afternoon, he was pale. No jaundice, cyanosis or thyromegaly. No jugular venous distension. Marked bilateral lower limb edema. VITAL SIGNS: His heart rate was 114, blood pressure was 137/62, temperature was 98.4, respiratory rate was 22 and oxygen saturation was 92% on 3 liters of oxygen. HEAD, EYES, EARS, NOSE AND THROAT: Showed normocephalic, atraumatic. NECK: Supple. HEART: Showed normal first and second heart sounds. No gallop or murmur. CHEST: Showed central trachea, equal reduced expansion, reduced air entry, vesicular sounds with scattered rhonchi and bilateral basal crepitation. ABDOMEN: Distended, soft, nontender. NEUROLOGIC: He is awake, alert, responding appropriately. All cranial nerves are intact. He moves all extremities without difficulty, although he is unable, he is mostly bed bound, wheelchair bound. He has palmar erythema and severe Dupuytren contracture of both hands. LABORATORY DATA: His lab work this morning showed hemoglobin of 8.1, hematocrit 25.2. His chemistry showed a serum sodium 142, potassium 3.8, chloride 105, bicarbonate 29, anion gap of 8, BUN 11, creatinine 0.9, estimated GFR was 82 mL per minute. His glucose was 209, calcium was 7.6. ASSESSMENT: 1. Healthcare-associated pneumonia, treated with intravenous vancomycin and Zosyn. His blood cultures are negative and he is now switched to continue with oral Augmentin. 2. Advanced chronic obstructive pulmonary disease. 3. Saddle embolus, treated with tissue plasminogen activator and heparin. 4. Acute blood loss anemia for which he is on inferior vena cava filter. While at [facility], he lost a huge amount of blood. In fact, his hemoglobin had dropped from 16-6.9. 5. He has sinus tachycardia, likely reactive, improved. 6. Hypokalemia, it has eventually improved. 7. Severe protein-calorie malnutrition with serum albumin is only 1.3 g/dL. We have had a lengthy discussion with the patient who agreed to go on hospice care at the [facility] facility. CLIVE CHUNG MD DR: BRIANNA/destiny JOB#: [id number] / [id number]
[2019-02-23 15:54] VITALS: BP 143/82
[2019-02-23 19:44] VITALS: BP 115/73
[2019-02-23 23:34] VITALS: BP 129/75
[2019-02-24] MEDS: IPRATRPIUM/ALBUTEROL 0.5/2.5MG 3 ML NEBU. NEB SCH (05:21)
[2019-02-24 06:16] VITALS: BP 132/80
[2019-02-24 06:23] LABS: HEMATOCRIT 25.9 % (39.0-53.0); HEMOGLOBIN 8.4 g/dL (13.0-17.5)
[2019-02-24 06:26] LABS: CALCIUM 7.4 mg/dL (8.5-10.1); CREATININE 0.8 mg/dL (0.7-1.3); GFR 93.5; POTASSIUM 3.8 mmol/L (3.5-5.1)
[2019-02-24] MEDS: POTASSIUM CHLORIDE 20 MEQ TABLET.ER. PO SCH (07:42)
[2019-02-24] MEDS: CALCIUM CARBONATE 500 MG TAB.CHEW PO SCH (07:42)
[2019-02-24] MEDS: LACTOBACILLUS RHAMNOSUS GG 1 CAPSULE. PO SCH (07:42)
[2019-02-24] MEDS: FERROUS SULFATE 325 MG TABLET. PO SCH (07:42)
[2019-02-24] MEDS: AMOXICILLIN/K CLAV 875/125MG TABLET. PO SCH (07:43)
[2019-02-24] MEDS: PANTOPRAZOLE 40 MG TABLET. PO SCH (07:43)
[2019-02-24] MEDS: methylPREDNISolone SOD SUCC PF 40 MG/ML VIAL. IV SCH (09:22)
--- NOTE | 2019-02-24 09:40 | DS ---
DATE OF DISCHARGE: HOSPITAL COURSE: The patient is a 78-year-old male patient who was initially admitted to this hospital with increasing shortness of breath and chest pain. Eventually, he was diagnosed with saddle embolus with acute cor pulmonale and was transferred to [facility] where he was treated with TPA and heparin drip. Unfortunately, he developed GI bleed and lost large amount of blood with his hemoglobin dropping from 16-6.9 and therefore, an IVC filter was placed successfully and was brought here to swing bed at [facility] to start the process of rehabilitation. He did initially very well and unfortunately, he again developed further episode of chest pain and shortness of breath. He has been extremely edematous and we did consult the cardiology team and initially we treated him with heparin again and unfortunately, it started bleeding and he continued to be extremely short of breath. He has generalized anasarca, extremely low albumin of only 1.3 g/dL. Unfortunately, the patient has no relatives. He is unable to be admitted to any snf facility and I had lengthy discussion with him and he agreed to go on hospice and was accepted for that at the [facility]. PHYSICAL EXAMINATION: GENERAL: When I saw him today, he was sitting comfortably in his chair, in no apparent respiratory distress, pale, but no jaundice, cyanosis, or thyromegaly. No jugular venous distention, but generalized anasarca. VITAL SIGNS: His heart rate was 99, blood pressure was 132/80, temperature was 97.6, respiratory rate was 24, and his oxygen saturation was 92% on 3.5 liters of oxygen. HEAD, EYES, EARS, NOSE, AND THROAT: Showed normocephalic, atraumatic. NECK: Supple. HEART: Showed normal first and second heart sounds. No gallop or murmur. CHEST: Clear to auscultation. No crepitation or rhonchi. ABDOMEN: Distended, soft, and nontender. NEUROLOGIC: He was awake, alert, and responding appropriately. All cranial nerves are intact. He moves extremities without difficulty, although he has extreme shortness of breath on minimal exertion and requires assistance. He is able to ambulate with a walker for short distances. His intake over the last 24 hours was 1000, output was 900. LABORATORY DATA: As of this morning, his hemoglobin was 8.4, hematocrit 25.9. His chemistry showed a serum sodium 142, potassium 3.8, chloride 104, bicarbonate 31, anion gap of 7, BUN 10, creatinine 0.8, estimated GFR was 94 mL per minute. His glucose was 131, calcium was 7.4. DISCHARGE MEDICATIONS: He was discharged to [facility] to continue on Tylenol 650 mg 4 times a day, aspirin 81 mg once a day, calcium carbonate for Tums 200 mg 3 times a day, ferrous sulfate 325 mg twice a day, hydrocodone/APAP 5/325 one tablet every 6 hours, lactobacillus acidophilus 1 capsule once a day, lorazepam 0.5 mg every 8 hours, Protonix 40 mg once a day, polyethylene glycol 17 grams daily, potassium chloride for Klor-Con 20 mEq 3 times a day. FINAL DISCHARGE DIAGNOSES: 1. Healthcare-associated pneumonia, treated with intravenous vancomycin and Zosyn. His blood cultures are negative. He was switched to continue with oral Augmentin. 2. Advanced chronic obstructive pulmonary disease. 3. Saddle embolus with acute cor pulmonale treated with tissue plasminogen activator and heparin. 4. Acute blood loss anemia for which he is on inferior vena cava filter as he lost large amount of blood while at [facility]. In fact, his hemoglobin dropped from 16-6.9. 5. He has sinus tachycardia, likely reactive, improved. 6. Hypokalemia has eventually improved. 7. Severe protein calorie malnutrition, serum albumin is only 1.3 g/dL. 8. The patient's overall prognosis is extremely poor and therefore, the patient will be transferred to [facility] snf facility to go on hospice care. CLIVE CHUNG MD DR: BRIANNA/destiny JOB#: [id number] / [id number]
--- NOTE | 2019-02-24 10:06 | NUR ---
NURSING NOTES: [facility] TRANSPORTED PER EMS. ALL DISCHARGE INSTRUCTIONS GIVEN TO OTHER FACILITY. REPORT CALLED TO YVONNE DUNN WHO VOICED UNDERSTANDING OF PATIENT CONDITION AT DISCHARGE. ALL PATIENT BELONGS SENT WITH PATIENT.
== END 2019-02-24 10:25 | disposition hospice, inpatient (51) | DRG 871 ==
LOC: 1 SOUTH 12:08
PROVIDERS: ADMIT Internal Medicine; ATTEND Internal Medicine
PROC: 02HV33Z Insertion of Infusion Device into Superior Vena Cava, Percutaneous Approach (ICD-10-PCS; principal; 2019-02-23)
PROC: B548ZZA Ultrasonography of Superior Vena Cava, Guidance (ICD-10-PCS; 2019-02-23)
DX: A41.9 Sepsis, unspecified organism (principal); E43 Unspecified severe protein-calorie malnutrition; J18.9 Pneumonia, unspecified organism; I50.33 Acute on chronic diastolic (congestive) heart failure; I26.09 Other pulmonary embolism with acute cor pulmonale; D62 Acute posthemorrhagic anemia; J44.1 Chronic obstructive pulmonary disease with (acute) exacerbation; J44.0 Chronic obstructive pulmonary disease with (acute) lower respiratory infection; I11.0 Hypertensive heart disease with heart failure; E87.6 Hypokalemia; I25.10 Atherosclerotic heart disease of native coronary artery without angina pectoris; L29.9 Pruritus, unspecified; Y95 Nosocomial condition; Z82.49 Family history of ischemic heart disease and other diseases of the circulatory system; Z95.828 Presence of other vascular implants and grafts; Z87.891 Personal history of nicotine dependence; Z68.27 Body mass index [BMI] 27.0-27.9, adult
CPT/HCPCS: 36415; 71045; 71275; 80048; 80053; 80202; 82274; 82803; 83880; 84145; 85007; 85014; 85018; 85025; 85027; 85049; 85610; 85730; 87804; 94640; 94760; J0696; J1644; J1940; J2543; J2920; J3370; J7040; J7050; J7620; P9046; 97110; 97530; J7030